=== PATIENT | male | born 1960 | race Caucasian/White ===

== ENCOUNTER 2018-06-17 11:46 | Emergency (ER) | payer BC, OTHER ==
[~2018-06-17] VITALS: Ht 177.8 cm; Wt 129.0 kg
[~2018-06-17 11:46] MED LIST: ASPI-1265 PO; ATOR20TA PO; CLOP75TA35 PO; ESCI10TA45 PO; LISI-222 PO; LOP25T PO; METF500T PO; NOR5T PO; PANT40TA39 PO
[2018-06-17] MEDS ORDERED: famotidine/PF 10 mg/ml inj IV ONE (12:20)
[2018-06-17] MEDS ORDERED: methylPREDNISolone sod succ 125mg/2ml vial IV ONE (12:20)
[2018-06-17] MEDS ORDERED: diphenhydrAMINE 50 mg/ml inj IV ONE (12:20)
[2018-06-17 14:36] VITALS: BP 147/90
== END 2018-06-17 14:38 | disposition home or self-care (01) ==
LOC: ER 11:46
DX: T63.441A Toxic effect of venom of bees, accidental (unintentional), initial encounter (principal); H93.8X9 Other specified disorders of ear, unspecified ear; I25.10 Atherosclerotic heart disease of native coronary artery without angina pectoris; Z88.0 Allergy status to penicillin; Z88.1 Allergy status to other antibiotic agents; Z79.82 Long term (current) use of aspirin; Z79.899 Other long term (current) drug therapy; Y92.89 Other specified places as the place of occurrence of the external cause
CPT/HCPCS: 96374; 96375; 99284; J1200; J2930; J3490

== ENCOUNTER 2020-05-25 10:16 | Emergency (ER) | payer BC, MEDICAID ==
[~2020-05-25] VITALS: Ht 175.3 cm; Wt 112.0 kg
[~2020-05-25 10:16] MED LIST changes: +ATOR10TA87 PO; -ATOR20TA PO; +CHOL100046 PO; -CLOP75TA35 PO; -ESCI10TA45 PO; -LISI-222 PO; +LISI1TAB32 PO; -LOP25T PO; +METF1000 PO; -METF500T PO; +METO100T7 PO; +NITR0.4T48 SL; -PANT40TA39 PO; +PIOG45TA5 PO
[2020-05-25 11:11] LABS: BASOPHILS # (AUTO) 0.1 X10'3 (0-0.2); BASOPHILS % (AUTO) 1.1 % (0-1); EOSINOPHILS # (AUTO) 0.2 X10'3 (0-0.9); EOSINOPHILS % (AUTO) 2.6 % (0-6); HEMATOCRIT 40.7 % (42.0-52.0); HEMOGLOBIN 13.4 g/dl (14.0-17.9); LYMPHOCYTES # (AUTO) 1.8 X10'3 (1.1-4.8); LYMPHOCYTES % (AUTO) 29.6 % (21-51); MEAN CORPUSCULAR HEMOGLOBIN 29.5 PG (27.0-31.0); MEAN CORPUSCULAR HGB CONC 32.8 g/dL (33.0-36.5); MEAN CORPUSCULAR VOLUME 89.8 FL (78-98); MEAN PLATELET VOLUME 8.6 FL (7.4-10.4); MONOCYTES # (AUTO) 0.7 X10'3 (0-0.9); MONOCYTES % (AUTO) 10.6 % (2-12); NEUTROPHILS # (AUTO) 3.5 X10'3 (1.8-7.7); NEUTROPHILS % (AUTO) 56.1 % (42-75); PLATELET COUNT 297 X10'3 (140-440); RED BLOOD COUNT 4.53 X10'6 (4.70-6.10); RED CELL DISTRIBUTION WIDTH 13.1 % (11.5-14.5); WHITE BLOOD COUNT 6.2 X10'3 (4.5-11.0)
[2020-05-25 11:23] LABS: ALANINE AMINOTRANSFERASE 15 U/L (12-78); ALBUMIN 3.1 G/DL (3.4-5.0); ALBUMIN/GLOBULIN RATIO 0.8 (1.1-1.5); ALKALINE PHOSPHATASE 83 IU/L (46-116); ANION GAP 6 (8-16); BILIRUBIN,TOTAL 0.4 MG/DL (0.1-1.0); BLOOD UREA NITROGEN 14 MG/DL (7-18); BUN/CREATININE RATIO 10.9 (5.4-32.0); CALCIUM 8.8 MG/DL (8.5-10.1); CHLORIDE 104 MMOL/L (99-107); CREATININE 1.28 MG/DL (0.60-1.10); GLUCOSE 370 MG/DL (70-104); POTASSIUM 4.3 MMOL/L (3.5-5.1); SODIUM 137 MMOL/L (135-145); TOTAL PROTEIN 7.2 G/DL (6.4-8.2); eGFR 58 ML/MIN
[2020-05-25 11:31] LABS: ASPARTATE AMINO TRANSFERASE 4 U/L (10-37)
[2020-05-25] MEDS ORDERED: normal saline 1000ML IV soln IVB ONE (12:05)
[2020-05-25 14:18] VITALS: BP 163/93
== END 2020-05-25 14:21 | disposition home or self-care (01) ==
LOC: ER 10:17
DX: E11.65 Type 2 diabetes mellitus with hyperglycemia (principal); I25.10 Atherosclerotic heart disease of native coronary artery without angina pectoris; Z88.0 Allergy status to penicillin; Z88.1 Allergy status to other antibiotic agents; Z79.82 Long term (current) use of aspirin; Z79.899 Other long term (current) drug therapy
CPT/HCPCS: 36415; 80053; 82948; 85025; 96360; 99285; J7030

== ENCOUNTER 2022-03-05 22:39 | Emergency (ER) | payer MEDICARE, MEDICAID ==
[~2022-03-05] VITALS: Ht 175.3 cm; Wt 140.9 kg
[~2022-03-05 22:39] MED LIST changes: -LISI1TAB32 PO; +LISI1TAB49 PO
[2022-03-05 22:43] VITALS: BP 158/76
[2022-03-05] MEDS ORDERED: CEPH250T PO (22:59)
[2022-03-05] MEDS ORDERED: SULF1TAB45 PO (22:59)
[2022-03-05] MEDS ORDERED: cephalexin 250mg capsule PO ONE (23:00)
[2022-03-05] MEDS ORDERED: sulfamethoxazole/trimethoprim DS (800/160mg) tablet PO ONE (23:00)
== END 2022-03-05 23:16 | disposition home or self-care (01) ==
LOC: ER 22:40
DX: L03.115 Cellulitis of right lower limb (principal); R50.9 Fever, unspecified; I25.10 Atherosclerotic heart disease of native coronary artery without angina pectoris; E11.9 Type 2 diabetes mellitus without complications; Z88.0 Allergy status to penicillin; Z88.1 Allergy status to other antibiotic agents; Z79.82 Long term (current) use of aspirin; Z79.2 Long term (current) use of antibiotics; Z79.899 Other long term (current) drug therapy
CPT/HCPCS: 99283

== ENCOUNTER 2022-06-17 22:52 | Emergency (ER) | payer MEDICARE, MEDICAID ==
[~2022-06-17] VITALS: Ht 175.3 cm; Wt 136.4 kg
[2022-06-18] MEDS ORDERED: ketorolac trometh. 30mg/ml inj. IM ONE (03:40)
[2022-06-18] MEDS ORDERED: morphine 4 MG/ML inj SYRINge IM ONE (03:40)
[2022-06-18 04:01] VITALS: BP 181/91
== END 2022-06-18 04:04 | disposition home or self-care (01) ==
LOC: ER 22:53
DX: I87.2 Venous insufficiency (chronic) (peripheral) (principal); L03.119 Cellulitis of unspecified part of limb; I10 Essential (primary) hypertension; K21.9 Gastro-esophageal reflux disease without esophagitis; E11.9 Type 2 diabetes mellitus without complications; G89.29 Other chronic pain; M54.50 Low back pain, unspecified; Z88.0 Allergy status to penicillin; Z88.1 Allergy status to other antibiotic agents
CPT/HCPCS: 96372; 99284; J1885; J2270

== ENCOUNTER 2022-07-04 22:08 | Emergency (ER) | payer MEDICARE, MEDICAID ==
[~2022-07-04] VITALS: Ht 175.3 cm; Wt 136.4 kg
[2022-07-04 23:16] LABS: BASOPHILS # (AUTO) 0.1 X10'3 (0-0.2); BASOPHILS % (AUTO) 0.6 % (0-1); EOSINOPHILS # (AUTO) 0.2 X10'3 (0-0.9); EOSINOPHILS % (AUTO) 2.3 % (0-6); HEMOGLOBIN 12.4 g/dl (14.0-17.9); LYMPHOCYTES # (AUTO) 1.6 X10'3 (1.1-4.8); LYMPHOCYTES % (AUTO) 15.9 % (21-51); MEAN CORPUSCULAR HEMOGLOBIN 28.3 PG (27.0-31.0); MEAN CORPUSCULAR HGB CONC 32.7 g/dL (33.0-36.5); MEAN CORPUSCULAR VOLUME 86.5 FL (78-98); MEAN PLATELET VOLUME 7.9 FL (7.4-10.4); MONOCYTES # (AUTO) 0.8 X10'3 (0-0.9); MONOCYTES % (AUTO) 8.2 % (2-12); NEUTROPHILS # (AUTO) 7.2 X10'3 (1.8-7.7); PLATELET COUNT 381 X10'3 (140-440); RED BLOOD COUNT 4.39 X10'6 (4.70-6.10); RED CELL DISTRIBUTION WIDTH 14.6 % (11.5-14.5); WHITE BLOOD COUNT 9.9 X10'3 (4.5-11.0)
[2022-07-04 23:30] LABS: ALANINE AMINOTRANSFERASE 21 U/L (12-78); ALBUMIN/GLOBULIN RATIO 0.7 (1.1-1.5); ALKALINE PHOSPHATASE 72 IU/L (46-116); ANION GAP 11 (8-16); ASPARTATE AMINO TRANSFERASE 11 U/L (10-37); BILIRUBIN,TOTAL 0.3 MG/DL (0.1-1.0); BLOOD UREA NITROGEN 20 MG/DL (7-18); BUN/CREATININE RATIO 16.4 (5.4-32.0); CHLORIDE 103 MMOL/L (99-107); CREATININE 1.22 MG/DL (0.60-1.10); GLUCOSE 135 MG/DL (70-104); POTASSIUM 3.9 MMOL/L (3.5-5.1); SODIUM 142 MMOL/L (135-145); TOTAL CARBON DIOXIDE 28.1 MMOL/L (24-32); TOTAL PROTEIN 7.6 G/DL (6.4-8.2); eGFR 60 ML/MIN
[2022-07-05 02:34] VITALS: BP 162/82
== END 2022-07-05 02:35 | disposition home or self-care (01) ==
LOC: ER 22:09
DX: R53.1 Weakness (principal); R53.83 Other fatigue; R07.89 Other chest pain; I25.10 Atherosclerotic heart disease of native coronary artery without angina pectoris; I10 Essential (primary) hypertension; K21.9 Gastro-esophageal reflux disease without esophagitis; E11.9 Type 2 diabetes mellitus without complications; G89.29 Other chronic pain; Z88.0 Allergy status to penicillin; Z88.1 Allergy status to other antibiotic agents; Z79.82 Long term (current) use of aspirin; Z79.899 Other long term (current) drug therapy
CPT/HCPCS: 36415; 71045; 80053; 83880; 84484; 85025; 93005; 99285

== ENCOUNTER 2023-06-24 06:07 | Inpatient (IN) | payer MEDICARE, MEDICAID ==
[2023-06-19 14:29] LABS: BILIRUBIN,URINE NEGATIVE (Neg); CLARITY,URINE CLEAR (Clear); COLOR,URINE YELLOW (Yellow); GLUCOSE, URINE >=1000 mg/dl (Neg); KETONES,URINE NEGATIVE (Neg); LEUKOCYTE ESTERASE ,URINE NEGATIVE (Neg); NITRITES, URINE NEGATIVE (Neg); OCCULT BLOOD,URINE NEGATIVE (Neg); PH,URINE 5.5 (4.8-8.0); PROTEIN,URINE NEGATIVE (Neg); UROBILINOGEN,URINE 0.2 E.U/dL (0.2-1.0)
[2023-06-19 14:33] LABS: BASOPHILS # (AUTO) 0.1 X10'3 (0-0.2); BASOPHILS % (AUTO) 0.5 % (0-1); EOSINOPHILS # (AUTO) 0.2 X10'3 (0-0.9); EOSINOPHILS % (AUTO) 1.8 % (0-6); LYMPHOCYTES # (AUTO) 1.7 X10'3 (1.1-4.8); MEAN CORPUSCULAR HEMOGLOBIN 28.7 PG (27.0-31.0); MEAN CORPUSCULAR HGB CONC 32.4 g/dL (33.0-36.5); MEAN CORPUSCULAR VOLUME 88.6 FL (78-98); MEAN PLATELET VOLUME 8.1 FL (7.4-10.4); MONOCYTES % (AUTO) 9.2 % (2-12); NEUTROPHILS # (AUTO) 7.5 X10'3 (1.8-7.7); NEUTROPHILS % (AUTO) 72.5 % (42-75); PRE OP HEMATOCRIT 40.2 % (42.0-52.0); PRE OP PLATELET COUNT 367 X10'3 (140-440); PRE OP WHITE BLOOD COUNT 10.3 10'3 (4.8-10.8); RED BLOOD COUNT 4.53 X10'6 (4.70-6.10); RED CELL DISTRIBUTION WIDTH 14.7 % (11.5-14.5)
[2023-06-19 14:35] LABS: UA COLLECTION TYPE CLN CATCH MIDSTREAM
[2023-06-19 14:40] LABS: BACTERIA,URINE FEW /HPF (Neg); FINE GRANULAR CAST 0-3 /LPF (NEGATIVE); MUCUS STRANDS NONE SEEN /LPF (Neg); RBC,URINE NONE SEEN /HPF (0-2); SQUAMOUS EPITHELIAL CELL,UR NONE SEEN /LPF (FEW); WBC,URINE 0-4 /HPF (0-4)
[2023-06-19 14:48] LABS: PRE OP PROTIME 10.7 SECONDS (9.0-12.0)
[2023-06-19 15:03] LABS: HEMOGLOBIN A1C 7.7 % (4.5-6.2)
[2023-06-19 15:08] LABS: ALBUMIN 2.9 G/DL (3.4-5.0); ALBUMIN/GLOBULIN RATIO 0.7 (1.1-1.5); ALKALINE PHOSPHATASE 73 IU/L (46-116); BLOOD UREA NITROGEN 17 MG/DL (7-18); CHLORIDE 104 MMOL/L (99-107); CREATININE 1.13 MG/DL (0.60-1.10); PRE OP ALT 22 U/L (30-65); PRE OP ANION GAP 9 (8-16); PRE OP AST 13 U/L (10-37); PRE OP BILIRUB, TOTAL 0.4 MG/DL (0.0-1.0); PRE OP GLUCOSE 100 MG/DL (70-104); PRE OP POTASSIUM 4.3 MMOL/L (3.4-5.1); PRE OP SODIUM 142 MMOL/L (135-145); THYROID STIMULATING HORMONE 1.86 ulU/ml (0.34-4.50); TOTAL CARBON DIOXIDE 28.9 MMOL/L (24-32); TOTAL PROTEIN 7.3 G/DL (6.4-8.2); eGFR 66 ML/MIN
[2023-06-22 07:43] LABS: ABG BASE EXCESS 1.1 mmol/L (-2.0-2.0); ABG HCO3 25.5 mmol/L (22.0-26.0); ABG OXYGEN SATURATION 95.9 % (94-97); ABG PCO2 (T) 39.8 mmHg (35.0-48.0); ABG PH (T) 7.424 (7.340-7.440); ABG PO2 (T) 82.4 mmHg (75.0-100.0); ALLEN'S TEST POSITIVE; FCOHb 0.3 % (0.0-3.9); FHHb 4.1 % (0.0-5.0); FMetHb 0.1 % (0.0-1.5); FO2Hb 95.5 % (94-97); MODE ROOM AIR; TOTAL HEMOGLOBIN 13.8 G/dl (14.0-17.9)
[~2023-06-24] VITALS: Ht 172.7 cm; Wt 143.0 kg
[2023-06-24] VITALS (26 sets, daily range): BP systolic 93–149; BP diastolic 52–80; PULSE 70–80; RESP 14–16; TEMP 97.9; O2SAT 90–94
[~2023-06-24 06:07] MED LIST changes: +AMLO10TA16 PO; -ASPI-1265 PO; -ATOR10TA87 PO; +BUPR-317 PO; -CHOL100046 PO; +DOCUMENT DATE & TIME OF BETA-BLOCKER PO ONE; +DULA4.5P SQ; +DULO60CA59 PO; +EMPA10TA PO; +EZET10TA6 PO; +HUM7525 SQ; +Insulin Reg/NS 100units/100mL 100 ML IV SCH; +LISI10TA27 PO; -LISI1TAB49 PO; +LORazepam 2 mg/ml vial IV ONE; +METF-516 PO; -METF1000 PO; +METO100T14 PO; -METO100T7 PO; -NITR0.4T48 SL; -NOR5T PO; +PANT-47 PO; -PIOG45TA5 PO; +ROSU40TA22 PO; +TICA90TA PO; +dextrose 50%-water 50ml dispensing syringe IV PRN; +famotidine 20mg tablet PO ONE; +metoprolol tartrate 12.5mg (1/2 tablet) PO ONE; +ringers solution, lacted 1,000 ML IV SCH; +vancomycin 1,500 MG in NS 300ml IV soln IV ONE
[2023-06-24] MEDS ORDERED: epiNEPHrine 1 mg/ml inj ONE (06:36)
[2023-06-24] MEDS ORDERED: ceFAZolin 1000mg inj ONE (06:37)
[2023-06-24] MEDS ORDERED: BUPIVAcaine 0.5% inj/PF 30 ML ONE (06:37)
[2023-06-24] MEDS ORDERED: vancomycin 1,000mg inj ONE (06:51)
[2023-06-24] MEDS ORDERED: ceFAZolin inj. 3,000 MG in normal saline 100ml IV soln 100 ML IV ONE (07:59)
[2023-06-24] MEDS ORDERED: LIDOcaine 2% (20 mg/ml) 5ml cardiac syringe ONE (08:00)
[2023-06-24] MEDS ORDERED: methylPREDNISolone sod succ 1000mg vial ONE (08:00)
[2023-06-24] MEDS ORDERED: sodium bicarbonate (8.4%) 1 mEq/ml syringe ONE (08:00)
[2023-06-24] MEDS ORDERED: aminocaproic acid 250 MG/1 ML inj. ONE ×2 (08:00→08:16)
[2023-06-24] MEDS ORDERED: mannitol 12.5gm/50mL VIAL IV ONE (08:00)
[2023-06-24] MEDS ORDERED: heparin 10,000 units/1 ML INJ ONE (08:00)
[2023-06-24] MEDS ORDERED: albumin (human) 25% 100 ML IV solution IV ONE (08:00)
[2023-06-24] MEDS ORDERED: NORepinephrine 1 mg/ml inj IV ONE (08:00)
[2023-06-24] MEDS ORDERED: calcium chloride 100 MG/1 ML inj IV ONE (08:00)
[2023-06-24] MEDS ORDERED: mupirocin 2% nasal ointment 1gm UD NS ONE (08:05)
[2023-06-24] MEDS ORDERED: midazolam 1 mg/ML 2ml injection ONE (08:06)
[2023-06-24] MEDS ORDERED: SUfentanil 50mcg/ml 1ml amp IV ONE ×2 (08:06)
[2023-06-24] MEDS ORDERED: NORepinephrine 8 MG in NS 250 ML BAG (32 mcg/ml) IV ONE (08:16)
[2023-06-24] MEDS ORDERED: DOBUTamine/D5W 500mg/250ml premix IV ONE (08:16)
[2023-06-24] MEDS ORDERED: rocuronium 10mg/ml inj IV ONE ×2 (08:16→13:27)
[2023-06-24] MEDS ORDERED: nitroGLYCERIN in D5W 50mg/250ml (Tridil) infusion IV ONE (08:16)
[2023-06-24] MEDS ORDERED: isoflurane 100ml inhalation liquid IH ONE (08:16)
[2023-06-24 08:54] LABS: ABG BASE EXCESS 1.2 mmol/L (-2.0-2.0); ABG HCO3 25.6 mmol/L (22.0-26.0); ABG OXYGEN SATURATION 99.8 % (94-97); ABG PCO2 39.9 mmHg (35.0-48.0); ABG PH 7.425 (7.340-7.440); ABG PO2 498.7 mmHg (75.0-100.0); CL (ABG) 103 mmol/L (99-107); FCOHb 0.3 % (0.0-3.9); FHHb 0.2 % (0.0-5.0); FMetHb 0.3 % (0.0-1.5); FO2Hb 99.2 % (94-97); GLUCOSE (ABG) 132 mg/dl (70-104); IONIZED CA (ABG) 1.15 mmol/L (1.10-1.30); TOTAL HEMOGLOBIN 12.1 G/dl (14.0-17.9)
[2023-06-24 09:27] LABS: ACT @ 1.70 U 267 SEC (193-297); ACT @ 2.84 U 382 SEC (260-420); BASELINE ACT 153 SEC (101-148)
[2023-06-24 09:54] LABS: ABG BASE EXCESS VENOUS 0.9 mmol/L (-2.0 - 2.0); ABG OXYGEN SATURATION VENOUS 78.5 % (75 - 99 %); ABG PCO2 VENOUS 43.7 mmHg (41.0-54.0); ABG PH (VENOUS) 7.393 (7.310-7.450); ABG PO2 VENOUS 43.3 mmHg (25.0-35.0); CL (ABG) 101 mmol/L (99-107); FCOHb VENOUS 0.7 %; FHHb VENOUS 21.3 %; FMetHb VENOUS 0.3 % (0.0 - 0.5); FO2Hb VENOUS 77.7 %; GLUCOSE (ABG) 134 mg/dl (70-104); IONIZED CA (ABG) 1.04 mmol/L (1.10-1.30); K (ABG) 3.9 mmol/L (3.5-5.1); TOTAL HEMOGLOBIN 9.3 G/dl (14.0-17.9)
[2023-06-24 09:58] LABS: ABG BASE EXCESS 1.2 mmol/L (-2.0-2.0); ABG OXYGEN SATURATION 99.8 % (94-97); ABG PCO2 42.2 mmHg (35.0-48.0); ABG PH 7.408 (7.340-7.440); ABG PO2 403.1 mmHg (75.0-100.0); CL (ABG) 102 mmol/L (99-107); FCOHb 0.5 % (0.0-3.9); FHHb 0.2 % (0.0-5.0); FMetHb 0.3 % (0.0-1.5); GLUCOSE (ABG) 136 mg/dl (70-104); IONIZED CA (ABG) 1.03 mmol/L (1.10-1.30); TOTAL HEMOGLOBIN 9.1 G/dl (14.0-17.9)
[2023-06-24 10:04] LABS: ABG BASE EXCESS VENOUS 2.4 mmol/L (-2.0 - 2.0); ABG HCO3 VENOUS 28.4 mmol/L (21.0-28.0); ABG PCO2 VENOUS 51.3 mmHg (41.0-54.0); ABG PH (VENOUS) 7.361 (7.310-7.450); ABG PO2 VENOUS 35.6 mmHg (25.0-35.0); CL (ABG) 102 mmol/L (99-107); FCOHb VENOUS 0.9 %; FHHb VENOUS 32.7 %; FMetHb VENOUS 0.1 % (0.0 - 0.5); FO2Hb VENOUS 66.3 %; GLUCOSE (ABG) 138 mg/dl (70-104); IONIZED CA (ABG) 1.04 mmol/L (1.10-1.30); K (ABG) 4.1 mmol/L (3.5-5.1); TOTAL HEMOGLOBIN 9.4 G/dl (14.0-17.9)
[2023-06-24] MEDS ORDERED: ipratropium/albuterol 3ml nebule IH PRN (10:05)
[2023-06-24 10:26] LABS: ABG HCO3 27.3 mmol/L (22.0-26.0); ABG OXYGEN SATURATION 99.4 % (94-97); ABG PCO2 46.1 mmHg (35.0-48.0); ABG PH 7.391 (7.340-7.440); CL (ABG) 101 mmol/L (99-107); FHHb 0.6 % (0.0-5.0); FMetHb 0.3 % (0.0-1.5); FO2Hb 99.1 % (94-97); GLUCOSE (ABG) 169 mg/dl (70-104); IONIZED CA (ABG) 1.05 mmol/L (1.10-1.30); K (ABG) 4.1 mmol/L (3.5-5.1); TOTAL HEMOGLOBIN 9.5 G/dl (14.0-17.9)
[2023-06-24 11:11] LABS: ABG BASE EXCESS 2.4 mmol/L (-2.0-2.0); ABG HCO3 28.3 mmol/L (22.0-26.0); ABG OXYGEN SATURATION 70.8 % (94-97); ABG PCO2 49.9 mmHg (35.0-48.0); ABG PH 7.371 (7.340-7.440); CL (ABG) 103 mmol/L (99-107); FCOHb 0.6 % (0.0-3.9); FHHb 28.9 % (0.0-5.0); FMetHb 0.3 % (0.0-1.5); FO2Hb 70.2 % (94-97); GLUCOSE (ABG) 166 mg/dl (70-104); IONIZED CA (ABG) 1.19 mmol/L (1.10-1.30); TOTAL HEMOGLOBIN 10.1 G/dl (14.0-17.9)
[2023-06-24 11:14] LABS: ACTIVATED CLOTTING TIME 120 SEC (101-148)
[2023-06-24] MEDS ORDERED: acetaminophen 1,000mg/100ml IV 100 ML IV ONE (11:22)
[2023-06-24] MEDS ORDERED: magnesium 4gm in 100ml NS 100 ML IV PRN (11:25)
[2023-06-24] MEDS ORDERED: magnesium hydroxide 30ml (MOM) UD suspension PO PRN (11:25)
[2023-06-24] MEDS ORDERED: ondansetron/PF 4mg/2ml inj IV PRN (11:25)
[2023-06-24] MEDS ORDERED: magnesium 2GM in 50ml NS 50 ML IV PRN (11:25)
[2023-06-24] MEDS ORDERED: potassium CL 10mEq/100ml bag 100 ML IV PRN (11:25)
[2023-06-24] MEDS ORDERED: acetaminophen 325mg tablet PO PRN ×2 (11:25)
[2023-06-24] MEDS ORDERED: Neutra Phos packet PO PRN (11:25)
[2023-06-24] MEDS ORDERED: nitroGLYCERIN-Tridil 50MG/D5W 250 ML IV SCH (11:25)
[2023-06-24] MEDS ORDERED: dextrose 50%-water 50ml dispensing syringe IV PRN (11:25)
[2023-06-24] MEDS ORDERED: sodium phosphate inj. 15 MMOL in dextrose 5%-water 250 ML IV PRN (11:25)
[2023-06-24] MEDS ORDERED: potassium Cl 20 mEq SR tablet PO PRN (11:25)
[2023-06-24] MEDS ORDERED: potassium Cl 40MEQ/1/2NS 520ml 520 ML IV PRN (11:25)
[2023-06-24] MEDS ORDERED: potassium Cl 40MEQ/270ML bag 250 ML IV PRN (11:25)
[2023-06-24] MEDS ORDERED: mineral oil 133ml enema RC PRN (11:25)
[2023-06-24] MEDS ORDERED: bisacodyl 10mg suppository rectal RC PRN (11:25)
[2023-06-24] MEDS ORDERED: morphine 2 MG/ML inj. syringe IV PRN (11:25)
[2023-06-24] MEDS ORDERED: niCARDipine-NS 40mg/200ml IVPB 200 ML IV PRN (11:25)
[2023-06-24] MEDS ORDERED: insulin glargine (Lantus) pen - multi-dose SQ PRN (11:25)
[2023-06-24] MEDS ORDERED: morphine 4 MG/ML inj SYRINge IV PRN (11:25)
[2023-06-24] MEDS ORDERED: metoclopramide 5 mg/ml inj IV PRN (11:25)
[2023-06-24] MEDS ORDERED: DOBUTamine-DoBUTrex 500mg/D5W 250 ML IV PRN (11:25)
[2023-06-24] MEDS ORDERED: sodium phosphate inj. 30 MMOL in dextrose 5%-water 250 ML IV PRN (11:25)
[2023-06-24] MEDS ORDERED: sodium chloride 0.45% 1,000 ML IV SCH (11:25)
[2023-06-24] MEDS ORDERED: albumin (Human) 5% 250ml 250 ML IV PRN (11:25)
--- NOTE | 2023-06-24 12:00 | NUR ---
Received to room 2009, accompanied by MDs and surgical crew. Placed on ventilator, to cafeteria monitor, arterial line and PA line pressure zeroed & monitored. Chest tubes to suction at 20 cm. Vora cath to gravity drainage. Dressings are dry and intact. See assessment record. All vasoactive drugs are infusing via central line.
[2023-06-24 12:15] LABS: ABG BASE EXCESS 0.8 mmol/L (-2.0-2.0); ABG HCO3 26.9 mmol/L (22.0-26.0); ABG PCO2 (T) 49.2 mmHg (35.0-48.0); ABG PH (T) 7.356 (7.340-7.440); ABG PO2 (T) 75.1 mmHg (75.0-100.0); FLOW 40 L/min; FMetHb 0.2 % (0.0-1.5); FO2Hb 93.8 % (94-97); MODE VENT - SIMV; PEEP 5 cm H2O; RESPIRATORY RATE 14 b/min; TIDAL VOLUME 650 mL; TOTAL HEMOGLOBIN 12.2 G/dl (14.0-17.9)
[2023-06-24 12:17] LABS: BASOPHILS % (AUTO) 0.2 % (0-1); EOSINOPHILS # (AUTO) 0.1 X10'3 (0-0.9); EOSINOPHILS % (AUTO) 0.4 % (0-6); HEMATOCRIT 34.5 % (42.0-52.0); HEMOGLOBIN 10.9 g/dl (14.0-17.9); LYMPHOCYTES # (AUTO) 1.3 X10'3 (1.1-4.8); LYMPHOCYTES % (AUTO) 7.5 % (21-51); MEAN CORPUSCULAR HEMOGLOBIN 28.2 PG (27.0-31.0); MEAN CORPUSCULAR HGB CONC 31.7 g/dL (33.0-36.5); MONOCYTES # (AUTO) 1.2 X10'3 (0-0.9); MONOCYTES % (AUTO) 6.9 % (2-12); NEUTROPHILS # (AUTO) 14.4 X10'3 (1.8-7.7); PLATELET COUNT 281 X10'3 (140-440); RED BLOOD COUNT 3.87 X10'6 (4.70-6.10); RED CELL DISTRIBUTION WIDTH 15.1 % (11.5-14.5)
[2023-06-24 12:30] LABS: APTT 27 SECONDS (22-32); INR 1.1 INR
[2023-06-24 12:32] LABS: ANION GAP 5 (8-16); BLOOD UREA NITROGEN 15 MG/DL (7-18); CHLORIDE 107 MMOL/L (99-107); GLUCOSE 160 MG/DL (70-104); SODIUM 140 MMOL/L (135-145)
[2023-06-24 12:33] LABS: ALANINE AMINOTRANSFERASE 16 U/L (12-78); ALBUMIN 2.3 G/DL (3.4-5.0); ALBUMIN/GLOBULIN RATIO 0.8 (1.1-1.5); ALKALINE PHOSPHATASE 45 IU/L (46-116); ASPARTATE AMINO TRANSFERASE 17 U/L (10-37); BILIRUBIN,TOTAL 0.6 MG/DL (0.1-1.0); BUN/CREATININE RATIO 10.9 (10.0-20.0); CALCIUM 8.6 MG/DL (8.5-10.1); CREATININE 1.38 MG/DL (0.60-1.10); MAGNESIUM 1.8 MG/DL (1.5-2.4); PHOSPHORUS 2.9 MG/DL (2.3-4.5); TOTAL PROTEIN 5.3 G/DL (6.4-8.2); eCRCL 54 ML/MIN; eGFR 52 ML/MIN
[2023-06-24] MEDS: potassium Cl 20mEq/100mL bag 100 ML IV PRN ×4 (12:50→21:38)
[2023-06-24] MEDS: Insulin Reg/NS 100units/100mL 100 ML IV SCH (13:15)
[2023-06-24] MEDS ORDERED: propofol inj 20 ML IV ONE (13:27)
[2023-06-24] MEDS ORDERED: LIDOcaine 2% (20mg/ml) 5ml vial ONE (13:27)
--- NOTE | 2023-06-24 13:35 | NUR ---
Nutrition consult: Per EMR pt remains intubated s/p CABG x 2 today. Pt would benefit from post CABG nutrition therapy education as appropriate following extubation. Will continue to follow. Addendum: 06/24/23 at [address] Amended: Links added.
[2023-06-24] MEDS ORDERED: NORepinephrine 8mg/ 250ml NS 250 ML IV PRN (14:05)
[2023-06-24] MEDS: ceFAZolin/D5W- 1GM premix 50 ML IV SCH (15:51)
[2023-06-24 16:24] LABS: ABG PO2 40.6 mmHg (75.0-100.0)
[2023-06-24 17:52] LABS: BASOPHILS % (AUTO) 0.1 % (0-1); EOSINOPHILS % (AUTO) 0.2 % (0-6); HEMATOCRIT 33.5 % (42.0-52.0); HEMOGLOBIN 10.6 g/dl (14.0-17.9); LYMPHOCYTES # (AUTO) 0.5 X10'3 (1.1-4.8); LYMPHOCYTES % (AUTO) 3.7 % (21-51); MEAN CORPUSCULAR HEMOGLOBIN 28.2 PG (27.0-31.0); MEAN CORPUSCULAR HGB CONC 31.6 g/dL (33.0-36.5); MEAN CORPUSCULAR VOLUME 89.3 FL (78-98); MEAN PLATELET VOLUME 7.9 FL (7.4-10.4); MONOCYTES # (AUTO) 0.6 X10'3 (0-0.9); MONOCYTES % (AUTO) 4.5 % (2-12); NEUTROPHILS # (AUTO) 11.9 X10'3 (1.8-7.7); NEUTROPHILS % (AUTO) 91.5 % (42-75); PLATELET COUNT 254 X10'3 (140-440); RED BLOOD COUNT 3.75 X10'6 (4.70-6.10); RED CELL DISTRIBUTION WIDTH 15.2 % (11.5-14.5)
[2023-06-24 18:07] LABS: ALBUMIN 2.6 G/DL (3.4-5.0); ANION GAP 8 (8-16); BLOOD UREA NITROGEN 15 MG/DL (7-18); BUN/CREATININE RATIO 12.4 (10.0-20.0); CALCIUM 8.6 MG/DL (8.5-10.1); CHLORIDE 107 MMOL/L (99-107); CREATININE 1.21 MG/DL (0.60-1.10); GLUCOSE 149 MG/DL (70-104); MAGNESIUM 2.6 MG/DL (1.5-2.4); PHOSPHORUS 3.9 MG/DL (2.3-4.5); POTASSIUM 4.3 MMOL/L (3.5-5.1); SODIUM 142 MMOL/L (135-145); TOTAL CARBON DIOXIDE 27.5 MMOL/L (24-32); eCRCL 61 ML/MIN; eGFR 61 ML/MIN
--- NOTE | 2023-06-24 18:12 | NUR ---
Problems reprioritized. Patient report given, questions answered & plan of care reviewed with Lis BRENNER.
--- NOTE | 2023-06-24 18:29 | NUR ---
Patient in room CICU 2008. I have received report from Andreas BRENNER and had the opportunity to ask questions and assume patient care.
--- NOTE | 2023-06-24 18:43 | NUR ---
Talha at bedside, PEEP changed to 10 from 5 to open up some alveoli, Sats at 89- 91%, FiO2 still at 80%. also at bedside, pt will nod appropriately but continues to be drowsy.
[2023-06-24] MEDS: vancomycin/NS 1 GM ADD-VANTAGE 250 ML IV SCH (20:05)
[2023-06-24] MEDS: mupirocin 2% nasal ointment 1gm UD NS SCH (20:09)
[2023-06-24] MEDS: sennosides/docusate sodium tablet PO SCH (20:09)
[2023-06-24] MEDS: buPROPion SR 150mg tablet PO SCH (20:40)
[2023-06-24] MEDS: atorvastatin 10mg tablet PO SCH (20:40)
[2023-06-24] MEDS ORDERED: ezetimibe 10mg tablet PO SCH (21:00)
[2023-06-24] MEDS: HYDROcodone/acetaminophen 10/325mg tab PO PRN (21:52)
[2023-06-25] VITALS (32 sets, daily range): BP systolic 93–140; BP diastolic 53–67; PULSE 75–146; RESP 13–25; O2SAT 89–95
[2023-06-25] MEDS: ceFAZolin/D5W- 1GM premix 50 ML IV SCH ×3 (00:05→16:29)
[2023-06-25] MEDS: HYDROcodone/acetaminophen 10/325mg tab PO PRN ×3 (02:14→18:01)
[2023-06-25 02:31] LABS: BASOPHILS % (AUTO) 0.2 % (0-1); EOSINOPHILS % (AUTO) 0 % (0-6); HEMATOCRIT 30.1 % (42.0-52.0); HEMOGLOBIN 9.8 g/dl (14.0-17.9); LYMPHOCYTES # (AUTO) 0.5 X10'3 (1.1-4.8); LYMPHOCYTES % (AUTO) 4.6 % (21-51); MEAN CORPUSCULAR HEMOGLOBIN 28.9 PG (27.0-31.0); MEAN CORPUSCULAR HGB CONC 32.4 g/dL (33.0-36.5); MEAN CORPUSCULAR VOLUME 88.9 FL (78-98); MEAN PLATELET VOLUME 8.3 FL (7.4-10.4); MONOCYTES # (AUTO) 0.7 X10'3 (0-0.9); MONOCYTES % (AUTO) 6.4 % (2-12); NEUTROPHILS % (AUTO) 88.8 % (42-75); PLATELET COUNT 216 X10'3 (140-440); RED BLOOD COUNT 3.38 X10'6 (4.70-6.10); RED CELL DISTRIBUTION WIDTH 15.3 % (11.5-14.5); WHITE BLOOD COUNT 11.2 X10'3 (4.5-11.0)
[2023-06-25 02:48] LABS: ALANINE AMINOTRANSFERASE 18 U/L (12-78); ALBUMIN 2.4 G/DL (3.4-5.0); ALBUMIN/GLOBULIN RATIO 0.8 (1.1-1.5); ALKALINE PHOSPHATASE 40 IU/L (46-116); ANION GAP 10 (8-16); ASPARTATE AMINO TRANSFERASE 21 U/L (10-37); BILIRUBIN,TOTAL 0.4 MG/DL (0.1-1.0); BLOOD UREA NITROGEN 17 MG/DL (7-18); CALCIUM 8.6 MG/DL (8.5-10.1); CHLORIDE 108 MMOL/L (99-107); CREATININE 1.13 MG/DL (0.60-1.10); GLUCOSE 139 MG/DL (70-104); MAGNESIUM 2.5 MG/DL (1.5-2.4); PHOSPHORUS 4.8 MG/DL (2.3-4.5); POTASSIUM 4.5 MMOL/L (3.5-5.1); SODIUM 142 MMOL/L (135-145); TOTAL CARBON DIOXIDE 23.9 MMOL/L (24-32); TOTAL PROTEIN 5.6 G/DL (6.4-8.2); eCRCL 66 ML/MIN; eGFR 66 ML/MIN
[2023-06-25 03:40] LABS: ABG BASE EXCESS -0.5 mmol/L (-2.0-2.0); ABG HCO3 25.1 mmol/L (22.0-26.0); ABG OXYGEN SATURATION 96.1 % (94-97); ABG PCO2 (T) 43.5 mmHg (35.0-48.0); ABG PH (T) 7.376 (7.340-7.440); ABG PO2 (T) 87.4 mmHg (75.0-100.0); FCOHb 0.3 % (0.0-3.9); FHHb 3.9 % (0.0-5.0); FMetHb 0.1 % (0.0-1.5); FO2Hb 95.7 % (94-97); MODE VENT - SIMV; PATIENT TEMPERATURE 36.2; PEEP 10 cm H2O; RESPIRATORY RATE 14 b/min; TIDAL VOLUME 650 mL; TOTAL HEMOGLOBIN 10.7 G/dl (14.0-17.9)
--- NOTE | 2023-06-25 06:14 | NUR ---
Problems reprioritized. Patient report given, questions answered & plan of care reviewed with Andreas BRENNER.
--- NOTE | 2023-06-25 06:28 | NUR ---
Patient in room CICU 2008. I have received report from Lis BRENNER and had the opportunity to ask questions and assume patient care.
--- NOTE | 2023-06-25 09:00 | NUR ---
BG 153mg/dl, stable at this time, ok with keeping insulin drip at 2.9ml/hour until the next glucose check.
[2023-06-25] MEDS: duloxetine 30mg CAPSULE.DR PO SCH (09:10)
[2023-06-25] MEDS: aspirin 81mg tab.chew PO SCH (09:10)
[2023-06-25] MEDS: mupirocin 2% nasal ointment 1gm UD NS SCH ×2 (09:11→20:00)
[2023-06-25] MEDS: metoprolol tartrate 12.5mg (1/2 tablet) PO SCH ×2 (09:11→20:19)
[2023-06-25] MEDS: vancomycin/NS 1 GM ADD-VANTAGE 250 ML IV SCH ×2 (09:11→20:18)
[2023-06-25] MEDS: sennosides/docusate sodium tablet PO SCH ×2 (09:11→20:19)
[2023-06-25] MEDS: Insulin Reg/NS 100units/100mL 100 ML IV SCH (09:22)
[2023-06-25] MEDS ORDERED: DEXTROSE 15 GM of carb/4 tabs (each vial/BOTTLE has 4 tablets) PO PRN ×2 (10:35)
[2023-06-25] MEDS ORDERED: dextrose 50%-water 50ml dispensing syringe IV PRN ×2 (10:35)
--- NOTE | 2023-06-25 11:03 | NUR ---
F/u: Per EMR pt with T2DM, fairly well controlled with A1c 7.7%. Pt remains intubated at this time. Pt would benefit from DM and post CABG nutrition therapy educations as appropriate following extubation. Will continue to follow. Addendum: 06/25/23 at [address] Amended: Links added.
[2023-06-25] MEDS: insulin Lispro (HumaLOG) vial - multi-dose SQ SCH (13:22)
[2023-06-25 15:17] LABS: ABG BASE EXCESS -0.4 mmol/L (-2.0-2.0); ABG HCO3 24.7 mmol/L (22.0-26.0); ABG OXYGEN SATURATION 94.3 % (94-97); ABG PCO2 (T) 42.5 mmHg (35.0-48.0); ABG PH (T) 7.383 (7.340-7.440); ABG PO2 (T) 78.8 mmHg (75.0-100.0); FCOHb 0.3 % (0.0-3.9); FHHb 5.7 % (0.0-5.0); FMetHb 0.1 % (0.0-1.5); FO2Hb 93.9 % (94-97); MODE VENT - CPAP/PS; PEEP 8 cm H2O; TOTAL HEMOGLOBIN 10.6 G/dl (14.0-17.9)
--- NOTE | 2023-06-25 18:10 | NUR ---
Problems reprioritized. Patient report given, questions answered & plan of care reviewed with Alex BRENNER.
--- NOTE | 2023-06-25 18:21 | NUR ---
Problems reprioritized. Patient report given, questions answered & plan of care reviewed with Dai BRENNER.
--- NOTE | 2023-06-25 18:22 | NUR ---
Student documentation: I have reviewed and agree with all interventions, assessments performed and documented by Farzana.
[2023-06-25] MEDS ORDERED: amiodarone 150mg/dext, iso-os 100 ML IV ONE ×2 (18:35→18:45)
[2023-06-25] MEDS: amiodarone/D5 360MG/200ML BAG 200 ML IV SCH ×2 (18:45→18:48)
[2023-06-25] MEDS: atorvastatin 10mg tablet PO SCH (20:19)
[2023-06-25] MEDS: buPROPion SR 150mg tablet PO SCH (20:19)
[2023-06-25 21:11] LABS: ANION GAP 10 (8-16); BLOOD UREA NITROGEN 24 MG/DL (7-18); BUN/CREATININE RATIO 20.7 (10.0-20.0); CALCIUM 8.5 MG/DL (8.5-10.1); CHLORIDE 106 MMOL/L (99-107); CREATININE 1.16 MG/DL (0.60-1.10); GLUCOSE 213 MG/DL (70-104); POTASSIUM 4.7 MMOL/L (3.5-5.1); SODIUM 143 MMOL/L (135-145); TOTAL CARBON DIOXIDE 26.9 MMOL/L (24-32); eCRCL 64 ML/MIN; eGFR 64 ML/MIN
[2023-06-25 21:12] LABS: ALBUMIN 2.4 G/DL (3.4-5.0); MAGNESIUM 2.3 MG/DL (1.5-2.4)
[2023-06-26] VITALS (25 sets, daily range): BP systolic 105–154; BP diastolic 63–85; PULSE 74–155; RESP 16–29; O2SAT 89–96
[2023-06-26] MEDS: ceFAZolin/D5W- 1GM premix 50 ML IV SCH (00:19)
[2023-06-26] MEDS: amiodarone/D5 360MG/200ML BAG 200 ML IV SCH ×2 (00:44→08:00)
[2023-06-26] MEDS: HYDROcodone/acetaminophen 10/325mg tab PO PRN ×4 (00:45→18:40)
[2023-06-26 02:59] LABS: BASOPHILS % (AUTO) 0.3 % (0-1); EOSINOPHILS % (AUTO) 0 % (0-6); HEMATOCRIT 30.3 % (42.0-52.0); HEMOGLOBIN 9.6 g/dl (14.0-17.9); LYMPHOCYTES # (AUTO) 0.9 X10'3 (1.1-4.8); LYMPHOCYTES % (AUTO) 6.4 % (21-51); MEAN CORPUSCULAR HEMOGLOBIN 28.8 PG (27.0-31.0); MEAN CORPUSCULAR HGB CONC 31.7 g/dL (33.0-36.5); MEAN CORPUSCULAR VOLUME 90.8 FL (78-98); MEAN PLATELET VOLUME 8.4 FL (7.4-10.4); MONOCYTES # (AUTO) 1.4 X10'3 (0-0.9); NEUTROPHILS # (AUTO) 11.9 X10'3 (1.8-7.7); NEUTROPHILS % (AUTO) 83.3 % (42-75); PLATELET COUNT 234 X10'3 (140-440); RED BLOOD COUNT 3.33 X10'6 (4.70-6.10); RED CELL DISTRIBUTION WIDTH 15.5 % (11.5-14.5); WHITE BLOOD COUNT 14.3 X10'3 (4.5-11.0)
[2023-06-26 03:16] LABS: ALBUMIN 2.3 G/DL (3.4-5.0); ANION GAP 14 (8-16); BLOOD UREA NITROGEN 24 MG/DL (7-18); BUN/CREATININE RATIO 21.1 (10.0-20.0); CALCIUM 8.8 MG/DL (8.5-10.1); CHLORIDE 106 MMOL/L (99-107); CREATININE 1.14 MG/DL (0.60-1.10); GLUCOSE 218 MG/DL (70-104); MAGNESIUM 2.4 MG/DL (1.5-2.4); PHOSPHORUS 3.7 MG/DL (2.3-4.5); POTASSIUM 4.9 MMOL/L (3.5-5.1); SODIUM 149 MMOL/L (135-145); TOTAL CARBON DIOXIDE 29.4 MMOL/L (24-32); eCRCL 65 ML/MIN; eGFR 65 ML/MIN
[2023-06-26] MEDS: pantoprazole 40mg Tablet.DR PO SCH (07:57)
[2023-06-26] MEDS: aspirin 81mg tab.chew PO SCH (07:57)
[2023-06-26] MEDS: duloxetine 30mg CAPSULE.DR PO SCH (07:58)
[2023-06-26] MEDS: metoprolol tartrate 12.5mg (1/2 tablet) PO SCH ×2 (07:58→20:40)
[2023-06-26] MEDS: mupirocin 2% nasal ointment 1gm UD NS SCH (07:58)
[2023-06-26] MEDS: sennosides/docusate sodium tablet PO SCH ×2 (07:58→20:38)
[2023-06-26] MEDS ORDERED: potassium Cl 40MEQ/1/2NS 520ml 520 ML IV PRN (08:25)
[2023-06-26] MEDS ORDERED: potassium Cl 40MEQ/270ML bag 270 ML IV PRN (08:25)
[2023-06-26] MEDS ORDERED: potassium Cl 20mEq/100mL bag 100 ML IV PRN (08:25)
[2023-06-26] MEDS ORDERED: potassium Cl 20 mEq SR tablet PO PRN ×2 (08:25)
[2023-06-26] MEDS ORDERED: magnesium 4gm in 100ml NS 100 ML IV PRN (08:25)
[2023-06-26] MEDS ORDERED: potassium CL 10mEq/100ml bag 100 ML IV PRN (08:25)
[2023-06-26] MEDS ORDERED: magnesium 2GM in 50ml NS 50 ML IV PRN (08:25)
[2023-06-26] MEDS: amiodarone 200mg tablet PO SCH ×2 (08:47→20:40)
[2023-06-26] MEDS: insulin Lispro (HumaLOG) vial - multi-dose SQ SCH ×4 (08:50→21:13)
--- NOTE | 2023-06-26 11:52 | NUR ---
Pt converted back to Afib.. Pt told RN i feel like I am back in Afib. HR 140's to 150's. Wojciech NIEVES called. Orders obtained.
[2023-06-26] MEDS ORDERED: amiodarone 150mg/dext, iso-os 100 ML IV ONE (11:55)
[2023-06-26] MEDS: insulin glargine (Lantus) pen - multi-dose SQ SCH (13:00)
--- NOTE | 2023-06-26 14:21 | NUR ---
Nutrition consult: Attempted visit with pt at bedside however RD was asked to come back another time. Written DM and post CABG nutrition therapy educations with RD contact information left at bedside and pt encouraged to reach out if needed. Will continue to follow and attempt verbal education at another time as able. Addendum: 06/26/23 at [address] Amended: Links added.
[2023-06-26] MEDS: buPROPion SR 150mg tablet PO SCH (20:37)
[2023-06-26] MEDS: atorvastatin 10mg tablet PO SCH (20:40)
[2023-06-26] MEDS: magnesium Cl slow-release 64mg tablet PO SCH (20:40)
[2023-06-26] MEDS ORDERED: digoxin 250mcg/ml 2ml ampule IV ONE (21:55)
[2023-06-26] MEDS ORDERED: diltiazem 5mg/ml 5ml inj. IV ONE (21:55)
--- NOTE | 2023-06-26 21:56 | NUR ---
Dr Castillo notified of pt going into rapid af in the 140's - new orders for cardizem, dig, check potassium
[2023-06-26] MEDS: diltiazem-NS 100mg/100ml 100 ML IV SCH (23:06)
[2023-06-27] VITALS (24 sets, daily range): BP systolic 95–144; BP diastolic 52–76; PULSE 71–120; RESP 12–30; O2SAT 91–96
[2023-06-27] MEDS: HYDROcodone/acetaminophen 10/325mg tab PO PRN ×6 (00:12→23:46)
[2023-06-27 03:07] LABS: BASOPHILS # (AUTO) 0.1 X10'3 (0-0.2); BASOPHILS % (AUTO) 0.5 % (0-1); EOSINOPHILS # (AUTO) 0.1 X10'3 (0-0.9); EOSINOPHILS % (AUTO) 0.6 % (0-6); HEMATOCRIT 30.6 % (42.0-52.0); HEMOGLOBIN 9.7 g/dl (14.0-17.9); LYMPHOCYTES # (AUTO) 1.4 X10'3 (1.1-4.8); LYMPHOCYTES % (AUTO) 11.5 % (21-51); MEAN CORPUSCULAR HEMOGLOBIN 28.5 PG (27.0-31.0); MEAN CORPUSCULAR HGB CONC 31.8 g/dL (33.0-36.5); MEAN CORPUSCULAR VOLUME 89.8 FL (78-98); MEAN PLATELET VOLUME 8.3 FL (7.4-10.4); MONOCYTES # (AUTO) 1.3 X10'3 (0-0.9); NEUTROPHILS # (AUTO) 9.2 X10'3 (1.8-7.7); NEUTROPHILS % (AUTO) 76.4 % (42-75); PLATELET COUNT 255 X10'3 (140-440); RED BLOOD COUNT 3.41 X10'6 (4.70-6.10); RED CELL DISTRIBUTION WIDTH 15.2 % (11.5-14.5)
[2023-06-27 03:28] LABS: ANION GAP 3 (8-16); BLOOD UREA NITROGEN 23 MG/DL (7-18); CALCIUM 8.6 MG/DL (8.5-10.1); CHLORIDE 106 MMOL/L (99-107); CREATININE 0.92 MG/DL (0.60-1.10); GLUCOSE 153 MG/DL (70-104); POTASSIUM 4.9 MMOL/L (3.5-5.1); SODIUM 142 MMOL/L (135-145); TOTAL CARBON DIOXIDE 33.3 MMOL/L (24-32); eCRCL 81 ML/MIN; eGFR 83 ML/MIN
[2023-06-27 03:29] LABS: ALBUMIN 2.2 G/DL (3.4-5.0); MAGNESIUM 2.2 MG/DL (1.5-2.4); PHOSPHORUS 3.1 MG/DL (2.3-4.5)
[2023-06-27] MEDS: diltiazem-NS 100mg/100ml 100 ML IV SCH ×2 (04:35→09:30)
--- NOTE | 2023-06-27 06:30 | NUR ---
Patient in room CICU 2008. I have received report from JORDIN Auguste and had the opportunity to ask questions and assume patient care.
[2023-06-27] MEDS: sennosides/docusate sodium tablet PO SCH ×2 (08:00→20:00)
[2023-06-27] MEDS: metoprolol tartrate 12.5mg (1/2 tablet) PO SCH ×2 (08:11→21:27)
[2023-06-27] MEDS: duloxetine 30mg CAPSULE.DR PO SCH (08:12)
[2023-06-27] MEDS: aspirin 81mg tab.chew PO SCH (08:12)
[2023-06-27] MEDS: magnesium Cl slow-release 64mg tablet PO SCH ×2 (08:12→21:28)
[2023-06-27] MEDS: pantoprazole 40mg Tablet.DR PO SCH (08:13)
[2023-06-27] MEDS: amiodarone 200mg tablet PO SCH ×2 (08:13→21:28)
[2023-06-27] MEDS: insulin Lispro (HumaLOG) vial - multi-dose SQ SCH ×3 (09:19→21:32)
--- NOTE | 2023-06-27 12:00 | NUR ---
Pt converted to NSR. Dilt gtt stopped per MD Castillo order. Pt in NAD, will continue to monitor.
[2023-06-27] MEDS: insulin glargine (Lantus) pen - multi-dose SQ SCH (13:33)
--- NOTE | 2023-06-27 18:30 | NUR ---
Problems reprioritized. Patient report given, questions answered & plan of care reviewed with JORDIN Johnson.
[2023-06-27] MEDS: enoxaparin 40mg/0.4ml syringe SUBCUT SCH (21:27)
[2023-06-27] MEDS: atorvastatin 10mg tablet PO SCH (21:28)
[2023-06-27] MEDS: buPROPion SR 150mg tablet PO SCH (21:28)
[2023-06-28] VITALS (23 sets, daily range): BP systolic 96–161; BP diastolic 55–94; PULSE 65–153; RESP 13–22; TEMP 97.7; O2SAT 87–98
[2023-06-28] MEDS: pantoprazole 40mg Tablet.DR PO SCH (07:30)
--- NOTE | 2023-06-28 07:32 | NUR ---
O2 Sat at rest on room air:__87_% If below 89%: Recovery O2 Sat at rest on __2_LPM:___96%:___% via nasal cannula____(mask/nasal cannula, etc..) No further documentation is necessary. If O2 Sat did not drop below 89% on room air,ambulate patient on room air. O2 Sat while ambulating on room air:___% Recovery O2 Sat while ambulating on ___LPM:___% No further documentation is necessary. If patient does not drop below 89% while ambulating, he/she does not qualify for home O2.
[2023-06-28] MEDS: HYDROcodone/acetaminophen 10/325mg tab PO PRN ×3 (08:00→18:57)
[2023-06-28 08:07] LABS: BASOPHILS # (AUTO) 0.1 X10'3 (0-0.2); BASOPHILS % (AUTO) 0.8 % (0-1); EOSINOPHILS # (AUTO) 0.3 X10'3 (0-0.9); EOSINOPHILS % (AUTO) 2.4 % (0-6); HEMATOCRIT 36.1 % (42.0-52.0); HEMOGLOBIN 11.3 g/dl (14.0-17.9); LYMPHOCYTES # (AUTO) 1.6 X10'3 (1.1-4.8); LYMPHOCYTES % (AUTO) 14.2 % (21-51); MEAN CORPUSCULAR HEMOGLOBIN 28.6 PG (27.0-31.0); MEAN CORPUSCULAR HGB CONC 31.3 g/dL (33.0-36.5); MEAN CORPUSCULAR VOLUME 91.4 FL (78-98); MEAN PLATELET VOLUME 8.2 FL (7.4-10.4); MONOCYTES # (AUTO) 1.7 X10'3 (0-0.9); MONOCYTES % (AUTO) 15.3 % (2-12); NEUTROPHILS # (AUTO) 7.5 X10'3 (1.8-7.7); NEUTROPHILS % (AUTO) 67.3 % (42-75); PLATELET COUNT 318 X10'3 (140-440); RED BLOOD COUNT 3.94 X10'6 (4.70-6.10); RED CELL DISTRIBUTION WIDTH 15.4 % (11.5-14.5); WHITE BLOOD COUNT 11.1 X10'3 (4.5-11.0)
[2023-06-28] MEDS: insulin Lispro (HumaLOG) vial - multi-dose SQ SCH ×3 (08:29→19:01)
[2023-06-28] MEDS: magnesium Cl slow-release 64mg tablet PO SCH ×2 (08:30→21:01)
[2023-06-28] MEDS: metoprolol tartrate 12.5mg (1/2 tablet) PO SCH ×2 (08:30→21:02)
[2023-06-28] MEDS: duloxetine 30mg CAPSULE.DR PO SCH (08:30)
[2023-06-28] MEDS: sennosides/docusate sodium tablet PO SCH ×2 (08:30→21:01)
[2023-06-28] MEDS: amiodarone 200mg tablet PO SCH ×2 (08:30→21:03)
[2023-06-28] MEDS: aspirin 81mg tab.chew PO SCH (08:31)
[2023-06-28] MEDS: enoxaparin 40mg/0.4ml syringe SUBCUT SCH ×2 (08:31→21:01)
--- NOTE | 2023-06-28 09:29 | NUR ---
Dr. Sarah Talley in to see pt. Stated pt appropriate for floor.
[2023-06-28 09:31] LABS: ALBUMIN 2.3 G/DL (3.4-5.0); ANION GAP 7 (8-16); BLOOD UREA NITROGEN 24 MG/DL (7-18); BUN/CREATININE RATIO 22.2 (10.0-20.0); CALCIUM 8.9 MG/DL (8.5-10.1); CHLORIDE 102 MMOL/L (99-107); CREATININE 1.08 MG/DL (0.60-1.10); GLUCOSE 229 MG/DL (70-104); POTASSIUM 4.5 MMOL/L (3.5-5.1); SODIUM 139 MMOL/L (135-145); eCRCL 69 ML/MIN; eGFR 69 ML/MIN
--- NOTE | 2023-06-28 11:31 | NUR ---
F/u 06/28: Pt/SO seen by OCHOA for verbal DM/heart healthy/high protein diet ed reinforcement. Pt reports still hungry after meals; agreeable to double proteins TIDWM for satiety/wound healing dietary notified. OCHOA encouraged pt/SO to contact dietitian's office if further nutrition questions/concerns. Addendum: 06/28/23 at [address] Amended: Links added.
[2023-06-28 11:59] LABS: MAGNESIUM 2.4 MG/DL (1.5-2.4)
[2023-06-28] MEDS: insulin glargine (Lantus) pen - multi-dose SQ SCH (13:33)
--- NOTE | 2023-06-28 15:42 | NUR ---
Pt. is difficult to get out of chair to bed/BSC etc. Unable to ambulate pt. for safety reasons.
--- NOTE | 2023-06-28 17:24 | NUR ---
Pt. to 3019 via w/c in stable condition with all belongings accompanied with Ely. Accepting RN received phone report and was present at pt. arrival to new room on PCU.
--- NOTE | 2023-06-28 17:30 | NUR ---
Patient in room PCU 3019. I have received report from JORDIN Ruiz and had the opportunity to ask questions and assume patient care.
--- NOTE | 2023-06-28 18:50 | NUR ---
Problems reprioritized. Patient report given, questions answered & plan of care reviewed with JORDIN Fisher.
--- NOTE | 2023-06-28 18:55 | NUR ---
Patient in room PCU 3019. I have received report from JORDIN Edgar and had the opportunity to ask questions and assume patient care. Patient sitting in bedside chair, just finished dinner. is at the bedside. No concerns at this time, I will continue to monitor.
[2023-06-28] MEDS: atorvastatin 10mg tablet PO SCH (21:02)
[2023-06-28] MEDS: buPROPion SR 150mg tablet PO SCH (21:02)
[2023-06-29] VITALS (10 sets, daily range): BP systolic 87–136; BP diastolic 54–66; PULSE 66–81; RESP 14–20; TEMP 97–97.8; O2SAT 92–97
[2023-06-29] MEDS: HYDROcodone/acetaminophen 10/325mg tab PO PRN ×4 (01:12→19:53)
[2023-06-29 06:54] LABS: BASOPHILS # (AUTO) 0.1 X10'3 (0-0.2); BASOPHILS % (AUTO) 0.9 % (0-1); EOSINOPHILS # (AUTO) 0.3 X10'3 (0-0.9); EOSINOPHILS % (AUTO) 4.4 % (0-6); HEMATOCRIT 30.7 % (42.0-52.0); HEMOGLOBIN 9.8 g/dl (14.0-17.9); LYMPHOCYTES # (AUTO) 1.4 X10'3 (1.1-4.8); LYMPHOCYTES % (AUTO) 17.8 % (21-51); MEAN CORPUSCULAR HEMOGLOBIN 28.7 PG (27.0-31.0); MEAN CORPUSCULAR HGB CONC 31.9 g/dL (33.0-36.5); MEAN CORPUSCULAR VOLUME 89.9 FL (78-98); MONOCYTES # (AUTO) 0.8 X10'3 (0-0.9); MONOCYTES % (AUTO) 10.6 % (2-12); NEUTROPHILS # (AUTO) 5.2 X10'3 (1.8-7.7); NEUTROPHILS % (AUTO) 66.3 % (42-75); PLATELET COUNT 318 X10'3 (140-440); RED BLOOD COUNT 3.42 X10'6 (4.70-6.10); WHITE BLOOD COUNT 7.8 X10'3 (4.5-11.0)
[2023-06-29 07:08] LABS: ALBUMIN 1.9 G/DL (3.4-5.0); ANION GAP 4 (8-16); BLOOD UREA NITROGEN 22 MG/DL (7-18); CALCIUM 8.4 MG/DL (8.5-10.1); CHLORIDE 104 MMOL/L (99-107); GLUCOSE 128 MG/DL (70-104); POTASSIUM 4.3 MMOL/L (3.5-5.1); SODIUM 139 MMOL/L (135-145); TOTAL CARBON DIOXIDE 31.3 MMOL/L (24-32); eCRCL 74 ML/MIN; eGFR 76 ML/MIN
[2023-06-29] MEDS: duloxetine 30mg CAPSULE.DR PO SCH (07:17)
[2023-06-29] MEDS: pantoprazole 40mg Tablet.DR PO SCH (07:17)
[2023-06-29] MEDS: magnesium Cl slow-release 64mg tablet PO SCH ×2 (07:17→19:59)
[2023-06-29] MEDS: amiodarone 200mg tablet PO SCH ×2 (07:18→19:59)
[2023-06-29] MEDS: sennosides/docusate sodium tablet PO SCH ×2 (07:18→19:59)
[2023-06-29] MEDS: enoxaparin 40mg/0.4ml syringe SUBCUT SCH ×2 (07:18→20:02)
[2023-06-29] MEDS: metoprolol tartrate 12.5mg (1/2 tablet) PO SCH ×2 (07:23→19:56)
[2023-06-29] MEDS: aspirin 81mg tab.chew PO SCH (09:41)
[2023-06-29] MEDS: insulin Lispro (HumaLOG) vial - multi-dose SQ SCH ×3 (09:47→18:50)
[2023-06-29] MEDS: insulin glargine (Lantus) pen - multi-dose SQ SCH (13:38)
--- NOTE | 2023-06-29 16:48 | NUR ---
Initial: Pt POD # 4 s/p CABG. Pt continues on heart healthy carbohydrate controlled with overall great appetite and an average PO intake 100% x 8 meals. Pt met 95% of estimated kcal needs and 100% of protein estimated needs. No nutrition intervention warranted at this time. LBM on 06/27 receiving routine bowel care per EMR. Will continue to follow. Recommendations: 1.continue heart healthy carbohydrate controlled diet 2.monitor PO intake and need for ONS 3.routine bowel care 4.weekly wts Addendum: 06/29/23 at [address] Amended: Links added.
--- NOTE | 2023-06-29 18:20 | NUR ---
Patient in room PCU 3019. I have received report from JORDIN Rosa and had the opportunity to ask questions and assume patient care. Patient was up to the bathroom w/o problem, has no concerns at this time. I will continue to monitor.
[2023-06-29] MEDS: atorvastatin 10mg tablet PO SCH (19:59)
[2023-06-29] MEDS: buPROPion SR 150mg tablet PO SCH (19:59)
[2023-06-30 02:00] VITALS: BP 131/77; PULSE 71; RESP 23; TEMP 96.3; O2SAT 96
[2023-06-30] MEDS: HYDROcodone/acetaminophen 10/325mg tab PO PRN ×2 (04:41→13:14)
--- NOTE | 2023-06-30 06:54 | NUR ---
Problems reprioritized. Patient report given, questions answered & plan of care reviewed with JORDIN Rosa.
[2023-06-30 07:53] LABS: ANION GAP 3 (8-16); BLOOD UREA NITROGEN 21 MG/DL (7-18); BUN/CREATININE RATIO 20.2 (10.0-20.0); CALCIUM 8.5 MG/DL (8.5-10.1); CHLORIDE 104 MMOL/L (99-107); CREATININE 1.04 MG/DL (0.60-1.10); GLUCOSE 169 MG/DL (70-104); POTASSIUM 4.7 MMOL/L (3.5-5.1); SODIUM 140 MMOL/L (135-145); TOTAL CARBON DIOXIDE 33.4 MMOL/L (24-32); eCRCL 71 ML/MIN; eGFR 72 ML/MIN
[2023-06-30 09:05] VITALS: PULSE 80; RESP 16; O2SAT 95
--- NOTE | 2023-06-30 09:06 | NUR ---
PT adamently refusing bipap, states " tried 2 different mask with home unit not tolerating" Pt denies sob. denies oxygen use at home, pt to call for sob. LIZBETH Merritt notified, new orders to DC bipap orders. Addendum: 06/30/23 at [address] Amended: Links added.
[2023-06-30] MEDS ORDERED: AMI200T PO (09:26)
[2023-06-30] MEDS ORDERED: LOP12.5T PO (09:26)
[2023-06-30] MEDS ORDERED: HYDR-3972 PO (09:26)
[2023-06-30] MEDS ORDERED: ASPI81TA53 PO (09:26)
[2023-06-30 09:58] VITALS: BP_SYST 142; PULSE 66
[2023-06-30] MEDS: metoprolol tartrate 12.5mg (1/2 tablet) PO SCH (09:58)
[2023-06-30] MEDS: aspirin 81mg tab.chew PO SCH (09:58)
[2023-06-30] MEDS: magnesium Cl slow-release 64mg tablet PO SCH (09:58)
[2023-06-30] MEDS: duloxetine 30mg CAPSULE.DR PO SCH (09:59)
[2023-06-30] MEDS: pantoprazole 40mg Tablet.DR PO SCH (09:59)
[2023-06-30] MEDS: amiodarone 200mg tablet PO SCH (09:59)
[2023-06-30] MEDS: sennosides/docusate sodium tablet PO SCH (09:59)
[2023-06-30] MEDS: enoxaparin 40mg/0.4ml syringe SUBCUT SCH (10:00)
[2023-06-30] MEDS: insulin Lispro (HumaLOG) vial - multi-dose SQ SCH ×2 (10:22→14:31)
[2023-06-30] MEDS: insulin glargine (Lantus) pen - multi-dose SQ SCH (13:00)
[2023-06-30 13:14] VITALS: RESP 16
--- NOTE | 2023-06-30 14:38 | NUR ---
Pt has been discharged and is waiting in his hospital bed for DME. The long acting insulin that was scheduled for 1300 is held due to his anticipated discharge home and the Pt. is planning to restart his normal home insulin routine that includes long acting insulin this evening
== END 2023-06-30 15:45 | disposition home or self-care (01) | DRG 235 ==
LOC: PAS IN 06:07 → CICU 2S 11:51 → PCU 3S 06-28 17:08
PROVIDERS: ADMIT Thoracic Surgery (Cardiothoracic Vascular Surgery); ATTEND Thoracic Surgery (Cardiothoracic Vascular Surgery)
PROC: 02100Z9 Bypass Coronary Artery, One Artery from Left Internal Mammary, Open Approach (ICD-10-PCS; 2023-06-24)
PROC: 06BQ4ZZ Excision of Left Saphenous Vein, Percutaneous Endoscopic Approach (ICD-10-PCS; 2023-06-24)
PROC: 5A1221Z Performance of Cardiac Output, Continuous (ICD-10-PCS; 2023-06-24)
PROC: B24BZZ4 Ultrasonography of Heart with Aorta, Transesophageal (ICD-10-PCS; 2023-06-24)
PROC: 021009W Bypass Coronary Artery, One Artery from Aorta with Autologous Venous Tissue, Open Approach (ICD-10-PCS; principal; 2023-06-24 08:16)
PROC: 5A09357 Assistance with Respiratory Ventilation, Less than 24 Consecutive Hours, Continuous Positive Airway Pressure (ICD-10-PCS; 2023-06-25)
DX: I25.10 Atherosclerotic heart disease of native coronary artery without angina pectoris (principal); J96.20 Acute and chronic respiratory failure, unspecified whether with hypoxia or hypercapnia; I50.32 Chronic diastolic (congestive) heart failure; Z68.42 Body mass index [BMI] 45.0-49.9, adult; J98.11 Atelectasis; I48.92 Unspecified atrial flutter; I97.190 Other postprocedural cardiac functional disturbances following cardiac surgery; E03.9 Hypothyroidism, unspecified; R09.02 Hypoxemia; I48.0 Paroxysmal atrial fibrillation; E11.9 Type 2 diabetes mellitus without complications; E66.01 Morbid (severe) obesity due to excess calories; E78.5 Hyperlipidemia, unspecified; I11.0 Hypertensive heart disease with heart failure; G47.33 Obstructive sleep apnea (adult) (pediatric); I87.2 Venous insufficiency (chronic) (peripheral); Z95.5 Presence of coronary angioplasty implant and graft; Y83.2 Surgical operation with anastomosis, bypass or graft as the cause of abnormal reaction of the patient, or of later complication, without mention of misadventure at the time of the procedure; Y92.230 Patient room in hospital as the place of occurrence of the external cause
CPT/HCPCS: 36415; 36600; 71045; 71046; 80048; 80053; 81001; 82330; 82435; 82803; 82947; 82948; 83036; 83735; 84100; 84132; 84295; 84443; 85018; 85025; 85347; 85610; 85730; 86870; 86880; 86885; 86900; 86901; 86902; 86905; 86920; 86922; 87081; 93005; 93312; 93325; 93880; 93970; 94002; 94003; 94010; 94760; 97110; 97116; 97161; 97530; A4333; A4615; A4618; A6213; A6258; A6402; A6449; A7000; A7048; C1751; G0378; J0131; J0171; J0282; J0690; J1160; J1250; J1644; J1650; J1815; J2060; J2150; J2250; J2270; J2704; J2930; J3370; J3475; J3480; J3490; J7030; J7040; J7050; J7120; P9045; P9047; S0020

== ENCOUNTER 2024-01-03 15:14 | Inpatient (IN) | payer MEDICARE, MEDICAID ==
[~2024-01-03] VITALS: Ht 175.3 cm; Wt 148.6 kg
[~2024-01-03 15:14] MED LIST changes: +AMI200T PO; -AMLO10TA16 PO; -BUPR-317 PO; +CLOP75TA34 PO; -DOCUMENT DATE & TIME OF BETA-BLOCKER PO ONE; -DULA4.5P SQ; -Insulin Reg/NS 100units/100mL 100 ML IV SCH; -LISI10TA27 PO; -LORazepam 2 mg/ml vial IV ONE; -METO100T14 PO; +METO50TA16 PO; -TICA90TA PO; -dextrose 50%-water 50ml dispensing syringe IV PRN; -famotidine 20mg tablet PO ONE; -metoprolol tartrate 12.5mg (1/2 tablet) PO ONE; -ringers solution, lacted 1,000 ML IV SCH; -vancomycin 1,500 MG in NS 300ml IV soln IV ONE
[2024-01-03 15:52] LABS: BASOPHILS % (AUTO) 0.4 % (0-1); EOSINOPHILS # (AUTO) 0.2 X10'3 (0-0.9); EOSINOPHILS % (AUTO) 2.9 % (0-6); HEMATOCRIT 43.7 % (42.0-52.0); HEMOGLOBIN 13.9 g/dl (14.0-17.9); LYMPHOCYTES # (AUTO) 1.5 X10'3 (1.1-4.8); LYMPHOCYTES % (AUTO) 20.7 % (21-51); MEAN CORPUSCULAR HEMOGLOBIN 28.6 PG (27.0-31.0); MEAN CORPUSCULAR HGB CONC 31.9 g/dL (33.0-36.5); MEAN CORPUSCULAR VOLUME 89.4 FL (78-98); MEAN PLATELET VOLUME 8.4 FL (7.4-10.4); MONOCYTES # (AUTO) 0.5 X10'3 (0-0.9); MONOCYTES % (AUTO) 6.2 % (2-12); NEUTROPHILS # (AUTO) 5.2 X10'3 (1.8-7.7); NEUTROPHILS % (AUTO) 69.8 % (42-75); PLATELET COUNT 363 X10'3 (140-440); RED BLOOD COUNT 4.88 X10'6 (4.70-6.10); RED CELL DISTRIBUTION WIDTH 15.2 % (11.5-14.5); WHITE BLOOD COUNT 7.4 X10'3 (4.5-11.0)
[2024-01-03 15:56] LABS: ALANINE AMINOTRANSFERASE 19 U/L (12-78); ALBUMIN/GLOBULIN RATIO 0.6 (1.1-1.5); ALKALINE PHOSPHATASE 83 IU/L (46-116); ANION GAP 6 (8-16); ASPARTATE AMINO TRANSFERASE 11 U/L (10-37); BILIRUBIN,TOTAL 0.5 MG/DL (0.1-1.0); BLOOD UREA NITROGEN 20 MG/DL (7-18); BUN/CREATININE RATIO 16.1 (10.0-20.0); CALCIUM 8.6 MG/DL (8.5-10.1); CHLORIDE 102 MMOL/L (99-107); CREATININE 1.24 MG/DL (0.60-1.10); GLUCOSE 270 MG/DL (70-104); POTASSIUM 4.1 MMOL/L (3.5-5.1); SODIUM 140 MMOL/L (135-145); TOTAL CARBON DIOXIDE 32.3 MMOL/L (24-32); eCRCL 61 ML/MIN; eGFR 59 ML/MIN
[2024-01-03 16:04] LABS: PRO BRAIN NATRIURETIC PEPTIDE 648 PG/ML (0-125)
[2024-01-03] MEDS ORDERED: magnesium Cl slow-release 64mg tablet PO PRN (18:05)
[2024-01-03] MEDS ORDERED: potassium Cl 40MEQ/1/2NS 520ml 520 ML IV PRN (18:05)
[2024-01-03] MEDS ORDERED: potassium Cl 20 mEq SR tablet PO PRN ×2 (18:05)
[2024-01-03] MEDS ORDERED: acetaminophen 325mg tablet PO PRN (18:05)
[2024-01-03] MEDS ORDERED: morphine 2 MG/ML inj. syringe IV PRN (18:05)
[2024-01-03] MEDS ORDERED: magnesium 2GM in 50ml NS 50 ML IV PRN (18:05)
[2024-01-03] MEDS ORDERED: ondansetron/PF 4mg/2ml inj IV PRN (18:05)
[2024-01-03] MEDS ORDERED: magnesium 4gm in 100ml NS 100 ML IV PRN (18:05)
[2024-01-03] MEDS: furosemide 10 MG/1 ML 10ml inj IV ONE (18:15)
[2024-01-03] MEDS: PERFLUTREN PROTEIN-A MICROSPHR (Optison) 0.22 MG/ML 3ML VIAL IV ONE (18:32)
[2024-01-03] MEDS: K and/or MAG REPLACEMENT MC SCH (19:30)
[2024-01-03] MEDS: heparin, porcine 5000 units/ml vial SQ SCH (20:11)
[2024-01-04] VITALS (7 sets, daily range): BP systolic 143–181; BP diastolic 69–89; PULSE 70–89; RESP 16–24; TEMP 97.3–98.7; O2SAT 94–99
[2024-01-04] MEDS: HYDROcodone/acetaminophen 5mg/325mg tablet PO PRN (02:24)
[2024-01-04 03:47] LABS: BASOPHILS % (AUTO) 0.4 % (0-1); EOSINOPHILS # (AUTO) 0.2 X10'3 (0-0.9); EOSINOPHILS % (AUTO) 2.2 % (0-6); HEMATOCRIT 39.3 % (42.0-52.0); HEMOGLOBIN 12.7 g/dl (14.0-17.9); LYMPHOCYTES # (AUTO) 1.6 X10'3 (1.1-4.8); LYMPHOCYTES % (AUTO) 18.4 % (21-51); MEAN CORPUSCULAR HEMOGLOBIN 28.9 PG (27.0-31.0); MEAN CORPUSCULAR HGB CONC 32.2 g/dL (33.0-36.5); MEAN CORPUSCULAR VOLUME 89.5 FL (78-98); MEAN PLATELET VOLUME 8.7 FL (7.4-10.4); MONOCYTES # (AUTO) 1.1 X10'3 (0-0.9); MONOCYTES % (AUTO) 12.4 % (2-12); NEUTROPHILS % (AUTO) 66.6 % (42-75); PLATELET COUNT 288 X10'3 (140-440); RED BLOOD COUNT 4.39 X10'6 (4.70-6.10); RED CELL DISTRIBUTION WIDTH 15.2 % (11.5-14.5); WHITE BLOOD COUNT 8.9 X10'3 (4.5-11.0)
[2024-01-04 04:17] LABS: ALBUMIN 2.7 G/DL (3.4-5.0); ANION GAP 6 (8-16); BLOOD UREA NITROGEN 24 MG/DL (7-18); BUN/CREATININE RATIO 17.4 (10.0-20.0); CALCIUM 8.4 MG/DL (8.5-10.1); CHLORIDE 103 MMOL/L (99-107); CREATININE 1.38 MG/DL (0.60-1.10); GLUCOSE 227 MG/DL (70-104); MAGNESIUM 2.1 MG/DL (1.5-2.4); SODIUM 139 MMOL/L (135-145); TOTAL CARBON DIOXIDE 30.1 MMOL/L (24-32); eCRCL 55 ML/MIN; eGFR 52 ML/MIN
[2024-01-04] MEDS: MESSAGE TO PHARMACY PO ONE (09:55)
[2024-01-04] MEDS ORDERED: glucagon, human recombinant 1mg kit SUBCUT PRN (09:55)
[2024-01-04] MEDS ORDERED: dextrose 50%-water 50ml dispensing syringe IV PRN ×2 (09:55)
[2024-01-04] MEDS ORDERED: DEXTROSE 15 GM of carb/4 tabs (each vial/BOTTLE has 4 tablets) PO PRN ×2 (09:55)
[2024-01-04] MEDS: furosemide 10 MG/1 ML 10ml inj IV ONE (12:56)
[2024-01-04] MEDS ORDERED: INSU100V41 SQ (13:28)
[2024-01-04] MEDS ORDERED: LISI5TAB22 PO (13:28)
[2024-01-04] MEDS ORDERED: BUPR150T8 PO (13:28)
[2024-01-04] MEDS ORDERED: INSU100V50 SQ (13:28)
[2024-01-04] MEDS: insulin Lispro (HumaLOG) vial - multi-dose SQ SCH (14:02)
[2024-01-04] MEDS: lisinopril 5mg tablet PO SCH (16:35)
[2024-01-04] MEDS: EMPAGLIFLOZIN 25 MG TABLET PO SCH (16:36)
[2024-01-04] MEDS: clopidogrel 75mg tablet PO SCH (16:36)
[2024-01-04] MEDS: buPROPion SR 150mg tablet PO SCH (16:36)
[2024-01-04] MEDS: furosemide 10 MG/1 ML 10ml inj IV SCH (20:27)
[2024-01-04] MEDS: amiodarone 200mg tablet PO SCH (20:33)
[2024-01-04] MEDS: metoprolol tartrate 50mg tablet PO SCH (20:33)
[2024-01-04] MEDS: ezetimibe 10mg tablet PO SCH (20:33)
[2024-01-04] MEDS: pantoprazole 40mg Tablet.DR PO SCH (20:34)
[2024-01-04] MEDS: insulin glargine (Lantus) pen - multi-dose SQ SCH (20:46)
[2024-01-04] MEDS ORDERED: INSULIN DEGLUDEC 80 UNIT SQ SCH (21:00)
[2024-01-05 02:00] VITALS: BP 158/80; PULSE 75; RESP 20; TEMP 97.9; O2SAT 92
[2024-01-05 06:00] VITALS: BP 128/57; PULSE 65; RESP 20; TEMP 98.4; O2SAT 99
[2024-01-05 06:23] LABS: ALBUMIN 2.7 G/DL (3.4-5.0); ANION GAP 5 (8-16); BLOOD UREA NITROGEN 24 MG/DL (7-18); BUN/CREATININE RATIO 16.6 (10.0-20.0); CALCIUM 8.6 MG/DL (8.5-10.1); CHLORIDE 103 MMOL/L (99-107); CREATININE 1.45 MG/DL (0.60-1.10); GLUCOSE 184 MG/DL (70-104); MAGNESIUM 2.5 MG/DL (1.5-2.4); POTASSIUM 4.1 MMOL/L (3.5-5.1); SODIUM 142 MMOL/L (135-145); TOTAL CARBON DIOXIDE 33.9 MMOL/L (24-32); eCRCL 52 ML/MIN; eGFR 49 ML/MIN
[2024-01-05 06:24] LABS: BASOPHILS % (AUTO) 0.8 % (0-1); EOSINOPHILS # (AUTO) 0.2 X10'3 (0-0.9); EOSINOPHILS % (AUTO) 3.5 % (0-6); HEMATOCRIT 40.5 % (42.0-52.0); HEMOGLOBIN 13.4 g/dl (14.0-17.9); LYMPHOCYTES # (AUTO) 1.5 X10'3 (1.1-4.8); MEAN CORPUSCULAR HEMOGLOBIN 29.5 PG (27.0-31.0); MEAN CORPUSCULAR VOLUME 89.4 FL (78-98); MEAN PLATELET VOLUME 8.4 FL (7.4-10.4); MONOCYTES # (AUTO) 0.7 X10'3 (0-0.9); MONOCYTES % (AUTO) 12.6 % (2-12); NEUTROPHILS % (AUTO) 55.1 % (42-75); PLATELET COUNT 303 X10'3 (140-440); RED BLOOD COUNT 4.53 X10'6 (4.70-6.10); RED CELL DISTRIBUTION WIDTH 15.2 % (11.5-14.5); WHITE BLOOD COUNT 5.5 X10'3 (4.5-11.0)
[2024-01-05 08:00] VITALS: RESP 20; O2SAT 95
[2024-01-05] MEDS: duloxetine 30mg CAPSULE.DR PO SCH (08:14)
[2024-01-05] MEDS: atorvastatin 20mg tablet PO SCH (08:15)
[2024-01-05 11:00] VITALS: BP 121/64; PULSE 54; RESP 20; TEMP 98; O2SAT 96
[2024-01-05 15:00] VITALS: BP 123/57; PULSE 65; RESP 16; TEMP 98; O2SAT 95
[2024-01-05] MEDS ORDERED: FURO-149 PO (15:45)
[2024-01-05 16:42] VITALS: BP 138/81; PULSE 73; RESP 18; TEMP 98.1; O2SAT 94
== END 2024-01-05 19:15 | disposition home or self-care (01) | DRG 291 ==
LOC: ER 15:15 → ED HOLD 18:07 → PCU 3S 01-04 14:40 → UNDODISIN 01-05 18:10
PROVIDERS: ADMIT Internal Medicine; ATTEND Internal Medicine
DX: I11.0 Hypertensive heart disease with heart failure (principal); I50.43 Acute on chronic combined systolic (congestive) and diastolic (congestive) heart failure; I48.91 Unspecified atrial fibrillation; M79.7 Fibromyalgia; K21.9 Gastro-esophageal reflux disease without esophagitis; E11.9 Type 2 diabetes mellitus without complications; E78.5 Hyperlipidemia, unspecified; G89.29 Other chronic pain; M54.9 Dorsalgia, unspecified; I25.10 Atherosclerotic heart disease of native coronary artery without angina pectoris; N40.0 Benign prostatic hyperplasia without lower urinary tract symptoms; Z88.0 Allergy status to penicillin; Z88.1 Allergy status to other antibiotic agents; Z95.1 Presence of aortocoronary bypass graft; Z79.01 Long term (current) use of anticoagulants; Z79.4 Long term (current) use of insulin; Z79.84 Long term (current) use of oral hypoglycemic drugs; Z79.899 Other long term (current) drug therapy; Z79.02 Long term (current) use of antithrombotics/antiplatelets
CPT/HCPCS: 36415; 71045; 80048; 80053; 82948; 83036; 83735; 83880; 84484; 85025; 87081; 93005; 93308; 99285; A4615; G0378; J1644; J1815; J1940

== ENCOUNTER 2024-02-04 23:10 | Emergency (ER) | payer MEDICARE, MEDICAID ==
[~2024-02-04] VITALS: Ht 175.3 cm; Wt 148.3 kg
[~2024-02-04 23:10] MED LIST changes: +BUPR150T8 PO; +FURO-149 PO; -HUM7525 SQ; +INSU100V41 SQ; +INSU100V50 SQ; +LISI5TAB22 PO
[2024-02-04 23:29] VITALS: BP 184/93; PULSE 78; RESP 16; TEMP 98.2; O2SAT 96
== END 2024-02-05 02:32 | disposition left against medical advice (07) ==
LOC: ER 23:11
DX: F32.A Depression, unspecified (principal); Z53.21 Procedure and treatment not carried out due to patient leaving prior to being seen by health care provider
CPT/HCPCS: 99281

== ENCOUNTER 2024-02-29 20:46 | Emergency (ER) | payer MEDICARE, MEDICAID ==
[~2024-02-29] VITALS: Ht 175.3 cm; Wt 145.0 kg
[2024-03-01] MEDS: furosemide 40mg/4ml inj IV ONE (00:20)
[2024-03-01] MEDS: cefepime 2g/NS 100ml ADVANTAGE 100 ML IV SCH (00:20)
[2024-03-01 00:23] LABS: BASOPHILS # (AUTO) 0.1 X10'3 (0-0.2); BASOPHILS % (AUTO) 0.7 % (0-1); EOSINOPHILS # (AUTO) 0.2 X10'3 (0-0.9); EOSINOPHILS % (AUTO) 2.3 % (0-6); HEMOGLOBIN 13.6 g/dl (14.0-17.9); LYMPHOCYTES # (AUTO) 1.7 X10'3 (1.1-4.8); MEAN CORPUSCULAR HEMOGLOBIN 29.4 PG (27.0-31.0); MEAN CORPUSCULAR HGB CONC 32.4 g/dL (33.0-36.5); MEAN CORPUSCULAR VOLUME 90.7 FL (78-98); MEAN PLATELET VOLUME 8.3 FL (7.4-10.4); MONOCYTES # (AUTO) 0.9 X10'3 (0-0.9); MONOCYTES % (AUTO) 10.5 % (2-12); NEUTROPHILS # (AUTO) 5.6 X10'3 (1.8-7.7); NEUTROPHILS % (AUTO) 66.5 % (42-75); PLATELET COUNT 324 X10'3 (140-440); RED BLOOD COUNT 4.63 X10'6 (4.70-6.10); RED CELL DISTRIBUTION WIDTH 14.1 % (11.5-14.5); WHITE BLOOD COUNT 8.4 X10'3 (4.5-11.0)
[2024-03-01 00:26] LABS: APTT 26 SECONDS (22-32); PROTHROMBIN TIME 10.9 SECONDS (9.0-12.0)
[2024-03-01 00:36] LABS: ALBUMIN 2.8 G/DL (3.4-5.0); ANION GAP 10 (8-16); BLOOD UREA NITROGEN 24 MG/DL (7-18); BUN/CREATININE RATIO 18.3 (10.0-20.0); CHLORIDE 103 MMOL/L (99-107); CREATININE 1.31 MG/DL (0.60-1.10); GLUCOSE 188 MG/DL (70-104); POTASSIUM 4.4 MMOL/L (3.5-5.1); PRO BRAIN NATRIURETIC PEPTIDE 342 PG/ML (0-125); SODIUM 141 MMOL/L (135-145); TOTAL CARBON DIOXIDE 27.7 MMOL/L (24-32); eCRCL 58 ML/MIN; eGFR 55 ML/MIN
[2024-03-01] MEDS: VANCOMYCIN 1,500MG inj. 1,500 MG in normal saline 500ml IV soln 300 ML IV SCH (01:22)
[2024-03-01] MEDS ORDERED: CLIN300C3 PO (03:26)
[2024-03-01] MEDS ORDERED: SULF1TAB49 PO (03:26)
[2024-03-01] MEDS: ondansetron/PF 4mg/2ml inj IV ONE (03:28)
[2024-03-01] MEDS: morphine 4 MG/ML inj SYRINge IV ONE (03:28)
[2024-03-01 03:58] VITALS: BP 163/76; PULSE 80; RESP 18; TEMP 97.8; O2SAT 94
== END 2024-03-01 04:04 | disposition home or self-care (01) ==
LOC: ER 20:47
DX: L03.115 Cellulitis of right lower limb (principal); L03.116 Cellulitis of left lower limb; R60.0 Localized edema; I25.10 Atherosclerotic heart disease of native coronary artery without angina pectoris; I10 Essential (primary) hypertension; K21.9 Gastro-esophageal reflux disease without esophagitis; G89.29 Other chronic pain; M54.9 Dorsalgia, unspecified; M79.7 Fibromyalgia; Z88.0 Allergy status to penicillin; Z88.1 Allergy status to other antibiotic agents
CPT/HCPCS: 36415; 71045; 80048; 83605; 83880; 85025; 85610; 85730; 87040; 93970; 96365; 96366; 96367; 96375; 99285; J0692; J1940; J2270; J2405; J3370; J7040; 96368; 96374

== ENCOUNTER 2024-04-21 09:13 | Outpatient (CLI) | payer MEDICARE, MEDICAID | END 2024-04-21 23:59 | disposition home or self-care (01) | LOC: RAD 09:13 | PROVIDERS: ATTEND Thoracic Surgery (Cardiothoracic Vascular Surgery) | DX: J90 Pleural effusion, not elsewhere classified (principal); I25.10 Atherosclerotic heart disease of native coronary artery without angina pectoris; R07.2 Precordial pain; Z90.2 Acquired absence of lung [part of] | CPT/HCPCS: 71250 ==

== ENCOUNTER 2024-09-12 16:36 | Emergency (ER) | payer MEDICARE, OTHER ==
[~2024-09-12] VITALS: Ht 175.3 cm; Wt 145.4 kg
[~2024-09-12 16:36] MED LIST changes: -ROSU40TA22 PO; +ROSU40TA89 PO
[2024-09-12 16:45] VITALS: BP 136/88; RESP 18; O2SAT 94
== END 2024-09-12 17:27 | disposition home or self-care (01) ==
LOC: ER 16:36
DX: F32.A Depression, unspecified (principal); G89.29 Other chronic pain; K21.9 Gastro-esophageal reflux disease without esophagitis; M79.7 Fibromyalgia; I11.0 Hypertensive heart disease with heart failure; I25.10 Atherosclerotic heart disease of native coronary artery without angina pectoris; I50.9 Heart failure, unspecified; E11.9 Type 2 diabetes mellitus without complications; Z88.0 Allergy status to penicillin; Z88.8 Allergy status to other drugs, medicaments and biological substances; Z79.899 Other long term (current) drug therapy; Z79.4 Long term (current) use of insulin; Z95.1 Presence of aortocoronary bypass graft
CPT/HCPCS: 99281

== ENCOUNTER 2024-12-01 19:26 | Emergency (ER) | payer MEDICARE, MEDICAID ==
[~2024-12-01] VITALS: Ht 175.3 cm; Wt 145.4 kg
[2024-12-01 19:31] VITALS: TEMP 98.9
[2024-12-01 19:57] LABS: BASOPHILS % (AUTO) 0.7 % (0-1); EOSINOPHILS # (AUTO) 0.1 X10'3 (0-0.9); EOSINOPHILS % (AUTO) 2.1 % (0-6); HEMATOCRIT 40.6 % (42.0-52.0); HEMOGLOBIN 13.2 g/dl (14.0-17.9); LYMPHOCYTES # (AUTO) 1.2 X10'3 (1.1-4.8); LYMPHOCYTES % (AUTO) 17.8 % (21-51); MEAN CORPUSCULAR HEMOGLOBIN 30.2 PG (27.0-31.0); MEAN CORPUSCULAR HGB CONC 32.6 g/dL (33.0-36.5); MEAN CORPUSCULAR VOLUME 92.8 FL (78-98); MEAN PLATELET VOLUME 8.5 FL (7.4-10.4); MONOCYTES # (AUTO) 0.8 X10'3 (0-0.9); MONOCYTES % (AUTO) 11.3 % (2-12); NEUTROPHILS # (AUTO) 4.6 X10'3 (1.8-7.7); NEUTROPHILS % (AUTO) 68.1 % (42-75); PLATELET COUNT 347 X10'3 (140-440); RED BLOOD COUNT 4.38 X10'6 (4.70-6.10); RED CELL DISTRIBUTION WIDTH 14.4 % (11.5-14.5); WHITE BLOOD COUNT 6.7 X10'3 (4.5-11.0)
[2024-12-01 20:26] LABS: ALANINE AMINOTRANSFERASE 17 U/L (12-78); ALBUMIN 2.8 G/DL (3.4-5.0); ALBUMIN/GLOBULIN RATIO 0.6 (1.1-1.5); ALKALINE PHOSPHATASE 92 IU/L (46-116); ANION GAP 8 (8-16); ASPARTATE AMINO TRANSFERASE 12 U/L (10-37); BILIRUBIN,TOTAL 0.3 MG/DL (0.1-1.0); BLOOD UREA NITROGEN 26 MG/DL (7-18); BUN/CREATININE RATIO 17.6 (10.0-20.0); CALCIUM 9.2 MG/DL (8.5-10.1); CHLORIDE 100 MMOL/L (99-107); CREATININE 1.48 MG/DL (0.60-1.10); POTASSIUM 4.3 MMOL/L (3.5-5.1); PRO BRAIN NATRIURETIC PEPTIDE 682 PG/ML (0-125); SODIUM 138 MMOL/L (135-145); TOTAL CARBON DIOXIDE 30.1 MMOL/L (24-32); TOTAL PROTEIN 7.4 G/DL (6.4-8.2); eCRCL 50 ML/MIN; eGFR 48 ML/MIN
[2024-12-01 20:35] LABS: GLUCOSE 443 MG/DL (70-104)
[2024-12-01] MEDS: hydrALAZINE 25 MG tablet PO ONE (23:51)
[2024-12-02 00:29] VITALS: BP 174/99; PULSE 79; RESP 15; O2SAT 95
== END 2024-12-02 00:31 | disposition home or self-care (01) ==
LOC: ER 19:26
DX: I11.0 Hypertensive heart disease with heart failure (principal); I50.9 Heart failure, unspecified; I25.10 Atherosclerotic heart disease of native coronary artery without angina pectoris; K21.9 Gastro-esophageal reflux disease without esophagitis; M79.7 Fibromyalgia; G89.29 Other chronic pain; M54.9 Dorsalgia, unspecified; E11.9 Type 2 diabetes mellitus without complications; Z91.148 Patient's other noncompliance with medication regimen for other reason; Z88.1 Allergy status to other antibiotic agents; Z79.4 Long term (current) use of insulin; Z79.899 Other long term (current) drug therapy; Z95.1 Presence of aortocoronary bypass graft; Z88.0 Allergy status to penicillin
CPT/HCPCS: 36415; 71045; 80053; 83880; 84484; 85025; 93005; 99285; A4615

== ENCOUNTER 2025-02-01 18:49 | Inpatient (IN) | payer MEDICARE, MEDICAID ==
[~2025-02-01] VITALS: Ht 175.3 cm; Wt 150.0 kg
[2025-02-01 19:33] LABS: BASOPHILS # (AUTO) 0.1 X10'3 (0-0.2); EOSINOPHILS # (AUTO) 0.2 X10'3 (0-0.9); EOSINOPHILS % (AUTO) 2.6 % (0-6); HEMATOCRIT 36.2 % (42.0-52.0); HEMOGLOBIN 11.7 g/dl (14.0-17.9); LYMPHOCYTES # (AUTO) 0.5 X10'3 (1.1-4.8); LYMPHOCYTES % (AUTO) 6.5 % (21-51); MEAN CORPUSCULAR HEMOGLOBIN 30.4 PG (27.0-31.0); MEAN CORPUSCULAR HGB CONC 32.2 g/dL (33.0-36.5); MEAN CORPUSCULAR VOLUME 94.5 FL (78-98); MEAN PLATELET VOLUME 8.2 FL (7.4-10.4); MONOCYTES # (AUTO) 0.5 X10'3 (0-0.9); MONOCYTES % (AUTO) 6.6 % (2-12); NEUTROPHILS # (AUTO) 5.8 X10'3 (1.8-7.7); NEUTROPHILS % (AUTO) 83.3 % (42-75); PLATELET COUNT 332 X10'3 (140-440); RED BLOOD COUNT 3.84 X10'6 (4.70-6.10)
[2025-02-01] MEDS: nitroGLYCERIN 1gm ointment UD TP ONE (19:55)
[2025-02-01] MEDS: furosemide 10 MG/1 ML 10ml inj IV ONE (19:55)
[2025-02-01 19:56] LABS: ALANINE AMINOTRANSFERASE 15 U/L (12-78); ALBUMIN 2.4 G/DL (3.4-5.0); ALBUMIN/GLOBULIN RATIO 0.4 (1.1-1.5); ALKALINE PHOSPHATASE 91 IU/L (46-116); ANION GAP 2 (8-16); ASPARTATE AMINO TRANSFERASE 7 U/L (10-37); BILIRUBIN,TOTAL 0.7 MG/DL (0.1-1.0); BLOOD UREA NITROGEN 13 MG/DL (7-18); BUN/CREATININE RATIO 12.7 (10.0-20.0); CALCIUM 9.1 MG/DL (8.5-10.1); CHLORIDE 101 MMOL/L (99-107); CREATININE 1.02 MG/DL (0.60-1.10); GLUCOSE 301 MG/DL (70-104); POTASSIUM 4.4 MMOL/L (3.5-5.1); SODIUM 140 MMOL/L (135-145); TOTAL CARBON DIOXIDE 37.1 MMOL/L (24-32); TOTAL PROTEIN 7.8 G/DL (6.4-8.2); eCRCL 73 ML/MIN; eGFR 74 ML/MIN
[2025-02-01 19:58] LABS: PRO BRAIN NATRIURETIC PEPTIDE 2191 PG/ML (0-125)
[2025-02-01] MEDS: furosemide 40mg/4ml inj IV ONE (20:54)
[2025-02-01] MEDS: ipratropium/albuterol 3ml nebule NEB ONE (20:58)
[2025-02-01 21:00] VITALS: PULSE 68; RESP 20; O2SAT 97
[2025-02-01 21:04] VITALS: PULSE 68; RESP 18; O2SAT 98
[2025-02-01] MEDS ORDERED: HYDROmorphone 1 mg/ml syringe IV ONE (22:00)
[2025-02-01] MEDS ORDERED: phenazopyridine 100mg tablet PO ONE (22:00)
[2025-02-01] MEDS ORDERED: magnesium sulf-water 2g/50mL 50 ML IV PRN (22:15)
[2025-02-01] MEDS ORDERED: potassium Cl 20 mEq SR tablet PO PRN ×2 (22:15)
[2025-02-01] MEDS ORDERED: potassium Cl 40MEQ/1/2NS 520ml 520 ML IV PRN (22:15)
[2025-02-01] MEDS ORDERED: albuterol 2.5 MG/3 ML nebule NEB PRN (22:15)
[2025-02-01] MEDS ORDERED: magnesium Cl slow-release 64mg tablet PO PRN (22:15)
[2025-02-01] MEDS ORDERED: acetaminophen 325mg tablet PO PRN ×2 (22:15)
[2025-02-01] MEDS ORDERED: magnesium hydroxide 30ml (MOM) UD suspension PO PRN (22:15)
[2025-02-01] MEDS ORDERED: magnesium sulf-water 4G/100mL 100 ML IV PRN (22:15)
[2025-02-01] MEDS ORDERED: HYDROcodone/acetaminophen 5mg/325mg tablet PO PRN (22:15)
[2025-02-01] MEDS ORDERED: ondansetron/PF 4mg/2ml inj IV PRN (22:15)
[2025-02-01 22:41] LABS: APTT 29 SECONDS (22-32); INR 1.1 INR; PROTHROMBIN TIME 11.4 SECONDS (9.0-12.0)
[2025-02-01 22:43] LABS: PHOSPHORUS 3.4 MG/DL (2.3-4.5)
[2025-02-01 22:49] LABS: HEMOGLOBIN A1C 9.1 % (4.5-6.2)
[2025-02-01 22:56] LABS: ABG BASE EXCESS 9.9 mmol/L (-2.0-3.0); ABG HCO3 36.7 mmol/L (21.0-28.0); ABG OXYGEN SATURATION 90.1 % (94.0-98.0); ABG PCO2 (T) 60.6 mmHg (35.0-48.0); ABG PO2 (T) 58.2 mmHg (83.0-108.0); ALLEN'S TEST POSITIVE; FHHb 9.8 % (0.0-5.0); FLOW 4 L/min; FMetHb 0.3 % (0.0-1.5); FO2Hb 88.9 % (94.0-98.0); MODE NASAL CANNULA; TOTAL HEMOGLOBIN 12.2 G/dl (13.5-17.5)
[2025-02-02] VITALS (11 sets, daily range): BP systolic 104–165; BP diastolic 42–74; PULSE 60–88; RESP 10–26; TEMP 97.2–98.2; O2SAT 94–98
[2025-02-02 00:51] LABS: BILIRUBIN,URINE NEGATIVE (Neg); CLARITY,URINE CLEAR (Clear); COLOR,URINE YELLOW (Yellow); GLUCOSE, URINE 100 mg/dl (Neg); KETONES,URINE NEGATIVE (Neg); LEUKOCYTE ESTERASE ,URINE NEGATIVE (Neg); NITRITES, URINE NEGATIVE (Neg); OCCULT BLOOD,URINE NEGATIVE (Neg); PH,URINE 5.5 (4.8-8.0); PROTEIN,URINE NEGATIVE (Neg); UROBILINOGEN,URINE 0.2 E.U/dL (0.2-1.0)
[2025-02-02 01:26] LABS: UA COLLECTION TYPE CLN CATCH MIDSTREAM
[2025-02-02 06:45] LABS: BASOPHILS # (AUTO) 0.1 X10'3 (0-0.2); BASOPHILS % (AUTO) 0.6 % (0-1); EOSINOPHILS # (AUTO) 0.2 X10'3 (0-0.9); EOSINOPHILS % (AUTO) 2.3 % (0-6); HEMATOCRIT 33.2 % (42.0-52.0); HEMOGLOBIN 10.8 g/dl (14.0-17.9); LYMPHOCYTES # (AUTO) 0.7 X10'3 (1.1-4.8); LYMPHOCYTES % (AUTO) 6.7 % (21-51); MEAN CORPUSCULAR HEMOGLOBIN 30.4 PG (27.0-31.0); MEAN CORPUSCULAR HGB CONC 32.4 g/dL (33.0-36.5); MEAN CORPUSCULAR VOLUME 93.8 FL (78-98); MONOCYTES # (AUTO) 0.8 X10'3 (0-0.9); MONOCYTES % (AUTO) 7.5 % (2-12); NEUTROPHILS # (AUTO) 8.4 X10'3 (1.8-7.7); NEUTROPHILS % (AUTO) 82.9 % (42-75); PLATELET COUNT 330 X10'3 (140-440); RED BLOOD COUNT 3.53 X10'6 (4.70-6.10); RED CELL DISTRIBUTION WIDTH 14.3 % (11.5-14.5); WHITE BLOOD COUNT 10.1 X10'3 (4.5-11.0)
[2025-02-02] MEDS: INSULIN LISPRO 100 UNIT/ML INSULN.PEN MULTI-DOSE SQ SCH ×2 (07:00→09:00)
[2025-02-02 07:06] LABS: ALANINE AMINOTRANSFERASE 15 U/L (12-78); ALBUMIN 2.2 G/DL (3.4-5.0); ALBUMIN/GLOBULIN RATIO 0.5 (1.1-1.5); ALKALINE PHOSPHATASE 81 IU/L (46-116); ANION GAP 2 (8-16); ASPARTATE AMINO TRANSFERASE 7 U/L (10-37); BILIRUBIN,TOTAL 0.7 MG/DL (0.1-1.0); BLOOD UREA NITROGEN 15 MG/DL (7-18); BUN/CREATININE RATIO 15.5 (10.0-20.0); CALCIUM 8.6 MG/DL (8.5-10.1); CHLORIDE 100 MMOL/L (99-107); CHOLESTEROL 137 MG/DL (0-200); CREATININE 0.97 MG/DL (0.60-1.10); GLUCOSE 260 MG/DL (70-104); HDL CHOLESTEROL 46 MG/DL (35-60); LDL CHOLESTEROL 75 MG/DL (50-100); SODIUM 140 MMOL/L (135-145); TOTAL CARBON DIOXIDE 38.2 MMOL/L (24-32); TRIGLYCERIDES 93 MG/DL (20-135); eCRCL 77 ML/MIN; eGFR 78 ML/MIN
[2025-02-02] MEDS: K and/or MAG REPLACEMENT MC SCH (08:00)
[2025-02-02] MEDS ORDERED: DEXTROSE 15 GM of carb/4 tabs (each vial/BOTTLE has 4 tablets) PO PRN ×2 (08:10)
[2025-02-02] MEDS ORDERED: dextrose 50%-water 50ml dispensing syringe IV PRN ×2 (08:10)
[2025-02-02] MEDS ORDERED: glucagon, human recombinant 1mg kit SUBCUT PRN (08:10)
[2025-02-02] MEDS: EMPAGLIFLOZIN 25 MG TABLET PO SCH (08:26)
[2025-02-02] MEDS: amiodarone 200mg tablet PO SCH (08:26)
[2025-02-02] MEDS: docusate sod 100mg capsule PO SCH (08:26)
[2025-02-02] MEDS: duloxetine 30mg CAPSULE.DR PO SCH (08:27)
[2025-02-02] MEDS: atorvastatin 20mg tablet PO SCH (08:27)
[2025-02-02] MEDS: clopidogrel 75mg tablet PO SCH (08:28)
[2025-02-02] MEDS: metoprolol tartrate 50mg tablet PO SCH (08:28)
[2025-02-02] MEDS: lisinopril 5mg tablet PO SCH (08:29)
[2025-02-02] MEDS: buPROPion SR 150mg tablet PO SCH (08:29)
[2025-02-02] MEDS: furosemide 10 MG/1 ML 10ml inj IV SCH (08:33)
[2025-02-02] MEDS: enoxaparin 40mg/0.4ml syringe SUBCUT SCH (08:36)
[2025-02-02] MEDS: ipratropium/albuterol 3ml nebule NEB PRN (15:45)
[2025-02-02] MEDS: insulin glargine (Lantus) pen - multi-dose SQ SCH (21:55)
[2025-02-02] MEDS: ezetimibe 10mg tablet PO SCH (21:57)
[2025-02-02] MEDS: furosemide 20MG tablet PO ONE (21:57)
[2025-02-02] MEDS: pantoprazole 40mg Tablet.DR PO SCH (21:57)
[2025-02-02] MEDS: nystatin 15 GM powder TP SCH (21:57)
[2025-02-02] MEDS: mag hydrox/Alum hydrox/simeth 30ml oral suspension PO PRN (22:58)
[2025-02-03] VITALS (8 sets, daily range): BP systolic 122–144; BP diastolic 43–90; PULSE 61–88; RESP 15–24; TEMP 96.7–97.8; O2SAT 90–99
[2025-02-03 05:57] LABS: BASOPHILS # (AUTO) 0.1 X10'3 (0-0.2); EOSINOPHILS # (AUTO) 0.3 X10'3 (0-0.9); EOSINOPHILS % (AUTO) 4.1 % (0-6); HEMOGLOBIN 10.8 g/dl (14.0-17.9); LYMPHOCYTES % (AUTO) 12.1 % (21-51); MEAN CORPUSCULAR HEMOGLOBIN 30.1 PG (27.0-31.0); MEAN CORPUSCULAR HGB CONC 31.7 g/dL (33.0-36.5); MONOCYTES # (AUTO) 0.7 X10'3 (0-0.9); MONOCYTES % (AUTO) 9.2 % (2-12); NEUTROPHILS # (AUTO) 5.9 X10'3 (1.8-7.7); NEUTROPHILS % (AUTO) 73.6 % (42-75); PLATELET COUNT 329 X10'3 (140-440); RED BLOOD COUNT 3.58 X10'6 (4.70-6.10); RED CELL DISTRIBUTION WIDTH 14.2 % (11.5-14.5); WHITE BLOOD COUNT 8.1 X10'3 (4.5-11.0)
[2025-02-03 06:09] LABS: ALANINE AMINOTRANSFERASE 12 U/L (12-78); ALBUMIN 2.3 G/DL (3.4-5.0); ALBUMIN/GLOBULIN RATIO 0.5 (1.1-1.5); ALKALINE PHOSPHATASE 81 IU/L (46-116); ANION GAP 2 (8-16); ASPARTATE AMINO TRANSFERASE 9 U/L (10-37); BILIRUBIN,TOTAL 0.6 MG/DL (0.1-1.0); BLOOD UREA NITROGEN 25 MG/DL (7-18); BUN/CREATININE RATIO 19.5 (10.0-20.0); CALCIUM 8.9 MG/DL (8.5-10.1); CHLORIDE 100 MMOL/L (99-107); CREATININE 1.28 MG/DL (0.60-1.10); GLUCOSE 189 MG/DL (70-104); MAGNESIUM 2.4 MG/DL (1.5-2.4); POTASSIUM 4.1 MMOL/L (3.5-5.1); SODIUM 141 MMOL/L (135-145); TOTAL PROTEIN 7.2 G/DL (6.4-8.2); eCRCL 58 ML/MIN; eGFR 57 ML/MIN
[2025-02-03] MEDS: furosemide 40mg tablet PO SCH (08:40)
[2025-02-03] MEDS ORDERED: ondansetron 4mg rapidly disintigrating tab PO PRN (16:45)
[2025-02-04 02:00] VITALS: BP 110/67; PULSE 66; RESP 18; TEMP 97.6; O2SAT 97
[2025-02-04 06:17] LABS: ALANINE AMINOTRANSFERASE 20 U/L (12-78); ALBUMIN 2.5 G/DL (3.4-5.0); ALBUMIN/GLOBULIN RATIO 0.5 (1.1-1.5); ALKALINE PHOSPHATASE 84 IU/L (46-116); ANION GAP 2 (8-16); ASPARTATE AMINO TRANSFERASE 29 U/L (10-37); BILIRUBIN,TOTAL 0.6 MG/DL (0.1-1.0); BLOOD UREA NITROGEN 32 MG/DL (7-18); BUN/CREATININE RATIO 22.9 (10.0-20.0); CALCIUM 9.1 MG/DL (8.5-10.1); CHLORIDE 100 MMOL/L (99-107); GLUCOSE 180 MG/DL (70-104); MAGNESIUM 2.4 MG/DL (1.5-2.4); SODIUM 143 MMOL/L (135-145); TOTAL PROTEIN 7.6 G/DL (6.4-8.2); eCRCL 53 ML/MIN; eGFR 51 ML/MIN
[2025-02-04 06:18] LABS: BASOPHILS # (AUTO) 0.1 X10'3 (0-0.2); BASOPHILS % (AUTO) 0.7 % (0-1); EOSINOPHILS # (AUTO) 0.3 X10'3 (0-0.9); EOSINOPHILS % (AUTO) 3.7 % (0-6); HEMATOCRIT 33.9 % (42.0-52.0); LYMPHOCYTES # (AUTO) 0.9 X10'3 (1.1-4.8); LYMPHOCYTES % (AUTO) 9.7 % (21-51); MEAN CORPUSCULAR HEMOGLOBIN 30.5 PG (27.0-31.0); MEAN CORPUSCULAR HGB CONC 32.3 g/dL (33.0-36.5); MEAN CORPUSCULAR VOLUME 94.2 FL (78-98); MEAN PLATELET VOLUME 8.2 FL (7.4-10.4); MONOCYTES # (AUTO) 0.8 X10'3 (0-0.9); MONOCYTES % (AUTO) 8.3 % (2-12); NEUTROPHILS % (AUTO) 77.6 % (42-75); PLATELET COUNT 388 X10'3 (140-440); RED CELL DISTRIBUTION WIDTH 14.7 % (11.5-14.5)
[2025-02-04 06:29] LABS: POTASSIUM 4.3 MMOL/L (3.5-5.1)
[2025-02-04 06:51] LABS: TOTAL CARBON DIOXIDE 40.9 MMOL/L (24-32)
[2025-02-04 08:00] VITALS: RESP 21; O2SAT 93
[2025-02-04 08:32] VITALS: BP_SYST 136; PULSE 75
[2025-02-04] MEDS ORDERED: NYSPWD TP (12:12)
[2025-02-04] MEDS ORDERED: FURO-149 PO (12:12)
[2025-02-05] MEDS ORDERED: furosemide 40mg tablet PO SCH (08:00)
== END 2025-02-04 14:50 | disposition home health service (06) | DRG 291 ==
LOC: ER 18:50 → ED HOLD 22:25 → PCU 3S 02-02 01:45
PROVIDERS: ADMIT Internal Medicine; ATTEND Family Medicine
DX: I11.0 Hypertensive heart disease with heart failure (principal); I50.33 Acute on chronic diastolic (congestive) heart failure; J96.22 Acute and chronic respiratory failure with hypercapnia; E66.2 Morbid (severe) obesity with alveolar hypoventilation; Z68.42 Body mass index [BMI] 45.0-49.9, adult; N17.9 Acute kidney failure, unspecified; Z20.822 Contact with and (suspected) exposure to COVID-19; I25.10 Atherosclerotic heart disease of native coronary artery without angina pectoris; K21.9 Gastro-esophageal reflux disease without esophagitis; G89.29 Other chronic pain; M54.9 Dorsalgia, unspecified; E11.9 Type 2 diabetes mellitus without complications; I48.91 Unspecified atrial fibrillation; E78.00 Pure hypercholesterolemia, unspecified; F32.A Depression, unspecified; F41.9 Anxiety disorder, unspecified; T50.1X6A Underdosing of loop [high-ceiling] diuretics, initial encounter; T50.2X5A Adverse effect of carbonic-anhydrase inhibitors, benzothiadiazides and other diuretics, initial encounter; Y92.238 Other place in hospital as the place of occurrence of the external cause; R35.0 Frequency of micturition; Z79.899 Other long term (current) drug therapy; Z88.0 Allergy status to penicillin; Z88.1 Allergy status to other antibiotic agents; Z88.8 Allergy status to other drugs, medicaments and biological substances; Z95.1 Presence of aortocoronary bypass graft; Z79.84 Long term (current) use of oral hypoglycemic drugs; Z79.4 Long term (current) use of insulin; Z79.02 Long term (current) use of antithrombotics/antiplatelets; Z82.49 Family history of ischemic heart disease and other diseases of the circulatory system; Z83.3 Family history of diabetes mellitus; Z91.148 Patient's other noncompliance with medication regimen for other reason; Y92.89 Other specified places as the place of occurrence of the external cause
CPT/HCPCS: 36415; 36600; 71045; 80053; 80061; 81003; 82803; 82948; 83036; 83735; 83880; 84100; 84484; 85018; 85025; 85610; 85730; 87081; 87502; 87503; 87811; 93005; 93306; 94640; 94760; 96374; 97116; 97161; 97530; 99291; A6449; G0378; J1650; J1815; J1940

== ENCOUNTER 2025-04-05 18:32 | Inpatient (IN) | payer MEDICARE, MEDICAID ==
[~2025-04-05] VITALS: Ht 172.7 cm; Wt 136.4 kg
[~2025-04-05 18:32] MED LIST changes: -AMI200T PO; +AMIO200T72 PO; +BUPR150T21 PO; -BUPR150T8 PO; +CLOP-32 PO; -CLOP75TA34 PO; -DULO60CA59 PO; +DULO60CA65 PO; -EMPA10TA PO; +EMPA25TA PO; -FURO-149 PO; +FURO40TA4 PO; -INSU100V41 SQ; -INSU100V50 SQ; +INSU200I8 SQ; -LISI5TAB22 PO; -METF-516 PO; +METF-900 PO; +SACU1TAB7 PO; +SEMA0.258 SQ; +[UNRECOGNIZED DRUG - CODE] SQ
--- NOTE | 2025-04-05 19:07 | Physician Documentation ---
History of Present Illness ~ Chief Complaint: Shortness of Breath Stated Complaint: LOW O2 Time Seen by MD: 19:04 Primary Medical Doctor: ; Dignity HPI Patient presents to the emergency room for evaluation of shortness of breath in leg swelling. Patient has history of multiple pneumonias and CHF exacerbations. History of COPD as well as CABG. Discharged recently. Over the past two days his legs have significant increase in edema leading to significant drainage from his legs left greater than right. Four days ago he also had his dog jump on in his leg and scratched it. Unknown of his leg was washed out but they did place bacitracin on it. No fevers. Increased oxygen demand with decreased exercise tolerance Medication Reconciliation Allergies: Coded Allergies: Penicillins (Verified Allergy, Severe, hives; RASH, 04/05/25) >5 years ago, hives, no treatment needed amoxicillin (Verified Allergy, Severe, hives;RASH, 04/05/25) canagliflozin (Verified Allergy, Severe, hives, 04/05/25) Scheduled Amiodarone HCl* (Amiodarone HCl*), 1 TAB PO DAILY, (Reported) Bupropion Hcl (Bupropion Xl), 1 TAB PO DAILY, (Reported) Clopidogrel Bisulfate (Plavix), 1 TAB PO DAILY, (Reported) Duloxetine HCl (Duloxetine HCl), 1 CAP PO QAM, (Reported) Empagliflozin (Jardiance), 1 TAB PO DAILY, (Reported) Ezetimibe (Zetia), 1 TAB PO DAILY, (Reported) Furosemide (Furosemide), 1 TAB PO DAILY, (Reported) Insulin Degludec (Insulin Degludec Pen (U-200)), 100 UNITS SQ DAILY, (Reported) Insulin Lispro-Aabc (Lyumjev Kwikpen U-100), 50 UNITS SQ TID, (Reported) Metformin Hcl* (Metformin ER*), 1,000 MG PO BID, (Reported) Metoprolol Tartrate (Metoprolol Tartrate), 1 TAB PO BID, (Reported) Pantoprazole Sodium (PROTONIX tablet), 1 TAB PO DAILY, (Reported) Rosuvastatin Calcium (Rosuvastatin Calcium), 1 TAB PO DAILY, (Reported) Sacubitril/Valsartan (Entresto 49 mg-51 mg Tablet), 1 TAB PO Q12H, (Reported) Semaglutide (Ozempic), 0.25 MG SQ Q7D, (Reported) Past Medical History Past Medical History: Coronary Artery Disease, Hypertension, Vascular Disease, GERD, Diabetes, Chronic Back Pain, Fibromyalgia Past Surgical History: coronary bypass surgery Patient History: FH ischemic heart disease FATHER (stroke, heart disease, HTN, CABG, diabetes), , Age: 70, Cause: Stroke GRANDFATHER OR GRANDMOTHER, , Cause: AMI (acute myocardial infarction) 2 Brothers (htn, heart attacks), , Age: 59 Alcohol Use: None Drug Use: none Lives In: Home Review of Systems ROS All review of systems negative except as per HPI Physical Exam Vital Signs: Temperature: 96.5, Source: Temporal, Heart Rate: 86, Respiratory Rate: 24, BP: 157/89, Pulse Oximetry: 74 Oxygen Flow Rate: 5.0 Physical Exam General: Patient is awake, alert, oriented x4 in no acute distress and chronically ill-appearing Head: Normocephalic and atraumatic. Eyes: Conjunctival normal. EOMI. PERRL. ENT: Mucous membranes moist. Neck: Supple, trachea is midline. Chest: Decreased lung sounds bilaterally without rales, rhonchi, or wheezes. Th ere is no accessory muscle use or retractions. Tachypneic Cardiac: RRR without murmurs, gallops, or rubs. Abd: Soft, nondistended, nontender, with normoactive bowel sounds. No guarding, rebound, or rigidity. Extremities: Severe lymphadenopathy bilateral lower extremities left greater than right. Active transudative fluids flowing out of patient's left leg. For puncture wounds in the shape of dogs nails on lateral aspect of patient's left bryson with mild oozing. No purulence. Increased erythema around his wound. Progress Results/Orders Results/Orders Orders - SANTANA ROGERS MD Electrocardiogram (04/05/25 19:15) Culture Blood (04/05/25 19:15) Chest,Single View (04/05/25 19:32) Page Hospitalist (04/05/25 21:27) Fill Out Med Reconciliation (04/05/25 21:27) Vancomycin/Ns 1 Gm Add-[place] (Vancomyc (04/05/25 22:30) Completed Orders - SANTANA ROGERS MD Electrocardiogram (04/05/25 19:15) Cbc/Diff (04/05/25 19:15) Chest,Single View (04/05/25 19:32) Procalcitonin (04/05/25 19:15) Hs Troponin I W Calculations (04/05/25 19:15) Lacticsepsis (04/05/25 19:15) BMP (04/05/25 19:34) MG (04/05/25 19:34) PBNP (04/05/25 19:34) Ua W/Microscopic, Cult If Ind (04/05/25 20:35) Furosemide Inj (Lasix Inj) (04/05/25 21:25) Sulfamethox/Trimethoprim Inj. (Bactrim I (04/05/25 22:05) Medications Received in ER Medications (Trade) Dose Ordered Sig/Milagros Route PRN Reason Start Time Stop Time Status Last Admin Dose Admin (Lasix inj) 40 mg ONCE ONCE IV 04/05/25 21:25 04/05/25 21:26 DC 04/05/25 22:16 40 MG Vital Signs 04/05/25 04/05/25 04/05/25 04/05/25 18:51 18:54 19:07 19:14 Temp 96.5 Pulse 86 84 Resp 24 28 28 B/P (MAP) 157/89 146/76 (99) Pulse Ox 75 74 90 O2 Delivery Nasal Cannula* O2 Flow Rate 5.0 5 3.0 FiO2 40 Laboratory Tests Test 04/05/25 19:18 04/05/25 19:41 04/05/25 20:35 White Blood Count 6.1 Red Blood Count 3.61 L Hemoglobin 10.5 L Hematocrit 32.8 L Mean Corpuscular Volume 90.9 Mean Corpuscular Hemoglobin 29.0 Mean Corpuscular Hemoglobin Concent 31.9 L Red Cell Distribution Width 15.3 H Platelet Count 290 Mean Platelet Volume 7.7 Neutrophils (%) (Auto) 71.0 Lymphocytes (%) (Auto) 12.8 L Monocytes (%) (Auto) 13.2 H Eosinophils (%) (Auto) 2.1 Basophils (%) (Auto) 0.9 Neutrophils # (Auto) 4.3 Lymphocytes # (Auto) 0.8 L Monocytes # (Auto) 0.8 Eosinophils # (Auto) 0.1 Basophils # (Auto) 0.1 CBC Comment Lactic Acid Level 1.3 Troponin I High Sensitivity 20 Procalcitonin < 0.05 Chemistry Comments Sodium Level 142 Potassium Level 3.6 Chloride Level 104 Carbon Dioxide Level 34.8 H Anion Gap 3 L Blood Urea Nitrogen 8 Creatinine 1.13 H Estimated GFR/1.73 m2 65 BUN/Creatinine Ratio 7.1 L Glucose Level 206 H Calcium Level 8.0 L Magnesium Level 1.8 Pro-B-Type Natriuretic Peptide 2868 H Albumin 2.1 L Urine Specimen Description Voided Urine Color Yellow Urine Clarity Clear Urine pH 6.0 Urine Specific [place] <=1.005 Urine Protein Negative Urine Glucose (UA) >=1000 H Urine Ketones Negative Urine Occult Blood Negative Urine Nitrite Negative Urine Bilirubin Negative Urine Urobilinogen 0.2 Urine Leukocyte Esterase Negative Urine RBC 0-2 Urine WBC None seen Urine Squamous Epithelial Cells None seen Urine Bacteria None seen Urine Mucus None seen Urine Culture Indicated Not ind Volume Urine Centrifuged 10 ml Urine Comment Microbiology Date/Time Source Procedure Growth Status 04/05/25 19:22 Blood Arm Left Blood Culture - Preliminary NEGATIVE (LESS THAN 24 HOURS) Resulted Medical Decision Making Findings Patient presents to the emergency room for evaluation of lower extremity edema, increased oxygen demand and redness to his left lower extremity. Differentials include but are not limited to CHF exacerbation, pneumonia, cellulitis, sepsis therefore emergent labs and imaging indicated. Patient is volume overloaded and Lasix has been initiated. Patient does have increased erythema to area of scratch in his lower extremity we will cover for cellulitis. Patient has a complicated medical history and he had not feel he would do well on outpatient basis. Departure Admitted to Inpatient Unit: yes, to hospitalist Impression: Primary Impression: CHF exacerbation Additional Impressions: Cellulitis Hypoxia Condition: Guarded Referrals: NO PRIMARY CARE PROVIDER (PCP) Signature Scribe Signature: No scribe Attestation: The note accurately reflects work and decisions made by me.Santana Rogers MD 04/05/25 21:29 SANTANA ROGERS MD April 05, 2025 19:07
--- NOTE | 2025-04-05 19:27 | ELECTROCARDIOGRAPH REPORT ---
[facility] Test Date: 2025-04-05 Test Time: 19:25:50 Pat Name: JESSIE BURGOS Department: [facility]- Patient ID: [facility]-[id number] Room: Gender: M Aws Consultant: : 1960 Requested By: DON ROWLAND Order Number: [id number] Reading MD: Dr. Jeffery Mcknight Measurements Intervals [place] Rate: 84 P: 41 VA: 170 QRS: -24 QRSD: 105 T: 116 QT: 382 QTc: 452 Interpretive Statements Sinus rhythm Borderline left axis deviation RSR' in V1 or V2, probably normal variant Nonspecific T abnrm, anterolateral leads Electronically Signed On 04-05-2025 21:43:[address] Jeffery Mcknight Please click the below link to view image of tracing.
[2025-04-05 19:31] LABS: BASOPHILS # (AUTO) 0.1 X10'3 (0-0.2); BASOPHILS % (AUTO) 0.9 % (0-1); EOSINOPHILS # (AUTO) 0.1 X10'3 (0-0.9); EOSINOPHILS % (AUTO) 2.1 % (0-6); HEMATOCRIT 32.8 % (42.0-52.0); HEMOGLOBIN 10.5 g/dl (14.0-17.9); LYMPHOCYTES # (AUTO) 0.8 X10'3 (1.1-4.8); LYMPHOCYTES % (AUTO) 12.8 % (21-51); MEAN CORPUSCULAR HGB CONC 31.9 g/dL (33.0-36.5); MEAN CORPUSCULAR VOLUME 90.9 FL (78-98); MEAN PLATELET VOLUME 7.7 FL (7.4-10.4); MONOCYTES # (AUTO) 0.8 X10'3 (0-0.9); MONOCYTES % (AUTO) 13.2 % (2-12); NEUTROPHILS # (AUTO) 4.3 X10'3 (1.8-7.7); PLATELET COUNT 290 X10'3 (140-440); RED BLOOD COUNT 3.61 X10'6 (4.70-6.10); RED CELL DISTRIBUTION WIDTH 15.3 % (11.5-14.5); WHITE BLOOD COUNT 6.1 X10'3 (4.5-11.0)
--- NOTE | 2025-04-05 19:41 | RADIOLOGY REPORT ---
CHEST RADIOGRAPH Indication: SEPSIS Technique: Single frontal view of the chest was obtained Comparison: DI CHEST,SINGLE VIEW on DOS: 03/03/25, DI CHEST,SINGLE VIEW on DOS: 02/24/25, DI CHEST,SING LE VIEW on DOS: 02/22/25, DI CHEST,SINGLE VIEW on DOS: 02/21/25, DI CHEST,SINGLE VIEW on DOS: 02/21/25 FINDINGS: Lines and Tubes: None Lungs: No focal consolidation. Mild pulmonary venous congestion. Pleura: No effusion. No pneumothorax. Cardiomediastinal contours: Cardiomegaly with median sternotomy with cardiac revascularization proced ure Bones: No acute osseous abnormality. The bony thorax demonstrate osteopenia. IMPRESSION: 1. .Cardiomegaly with median sternotomy with mild pulmonary venous congestion
[2025-04-05 20:09] LABS: ALBUMIN 2.1 G/DL (3.4-5.0); ANION GAP 3 (8-16); BLOOD UREA NITROGEN 8 MG/DL (7-18); BUN/CREATININE RATIO 7.1 (10.0-20.0); CHLORIDE 104 MMOL/L (99-107); CREATININE 1.13 MG/DL (0.60-1.10); GLUCOSE 206 MG/DL (70-104); MAGNESIUM 1.8 MG/DL (1.5-2.4); POTASSIUM 3.6 MMOL/L (3.5-5.1); PRO BRAIN NATRIURETIC PEPTIDE 2868 PG/ML (0-125); SODIUM 142 MMOL/L (135-145); TOTAL CARBON DIOXIDE 34.8 MMOL/L (24-32); eGFR 65 ML/MIN
[2025-04-05 20:41] LABS: BILIRUBIN,URINE NEGATIVE (Neg); CLARITY,URINE CLEAR (Clear); COLOR,URINE YELLOW (Yellow); GLUCOSE, URINE >=1000 mg/dl (Neg); KETONES,URINE NEGATIVE (Neg); LEUKOCYTE ESTERASE ,URINE NEGATIVE (Neg); NITRITES, URINE NEGATIVE (Neg); OCCULT BLOOD,URINE NEGATIVE (Neg); PROTEIN,URINE NEGATIVE (Neg); UROBILINOGEN,URINE 0.2 E.U/dL (0.2-1.0)
[2025-04-05 20:43] LABS: UA COLLECTION TYPE VOIDED
[2025-04-05 20:46] LABS: BACTERIA,URINE NONE SEEN /HPF (Neg); MUCUS STRANDS NONE SEEN /LPF (Neg); RBC,URINE 0-2 /HPF (0-2); SQUAMOUS EPITHELIAL CELL,UR NONE SEEN /LPF (FEW); WBC,URINE NONE SEEN /HPF (0-4)
[2025-04-05] MEDS ORDERED: sulfamethox/trimethoprim inj. 15 ML in dextrose 5% water 500ml 485 ML IV ONE ×2 (21:25→22:05)
[2025-04-05] MEDS: furosemide 10 MG/1 ML 10ml inj IV ONE (22:16)
[2025-04-05] MEDS ORDERED: vancomycin inj 1,000 MG in normal saline 250ml IV soln 250 ML IV ONE (22:25)
[2025-04-05] MEDS: vancomycin/NS 1 GM ADD-VANTAGE 250 ML IV ONE (23:04)
[2025-04-05] MEDS ORDERED: potassium Cl 40MEQ/1/2NS 520ml 520 ML IV PRN (23:40)
[2025-04-05] MEDS ORDERED: acetaminophen 325mg tablet PO PRN (23:40)
[2025-04-05] MEDS ORDERED: magnesium sulf-water 4G/100mL 100 ML IV PRN (23:40)
[2025-04-05] MEDS ORDERED: magnesium Cl slow-release 64mg tablet PO PRN (23:40)
[2025-04-05] MEDS ORDERED: potassium Cl 20 mEq SR tablet PO PRN ×2 (23:40)
[2025-04-05] MEDS ORDERED: mag hydrox/Alum hydrox/simeth 30ml oral suspension PO PRN (23:40)
[2025-04-05] MEDS ORDERED: magnesium hydroxide 30ml (MOM) UD suspension PO PRN (23:40)
[2025-04-05] MEDS ORDERED: ondansetron/PF 4mg/2ml inj IV PRN (23:40)
[2025-04-05] MEDS ORDERED: magnesium sulf-water 2g/50mL 50 ML IV PRN (23:40)
[2025-04-06] VITALS (8 sets, daily range): BP systolic 104–169; BP diastolic 57–84; PULSE 77–99; RESP 13–26; TEMP 96.9–98; O2SAT 87–91
[2025-04-06] MEDS ORDERED: glucagon, human recombinant 1mg kit SUBCUT PRN (00:10)
[2025-04-06] MEDS ORDERED: DEXTROSE 15 GM of carb/4 tabs (each vial/BOTTLE has 4 tablets) PO PRN (00:10)
[2025-04-06] MEDS ORDERED: dextrose 50%-water 50ml dispensing syringe IV PRN ×2 (00:10)
[2025-04-06 00:25] LABS: INR 1.1 INR; PROTHROMBIN TIME 11.3 SECONDS (9.0-12.0)
--- NOTE | 2025-04-06 03:13 | HISTORY AND PHYSICAL-Residence ---
History & Physical Providers to CC Resident Creating Document: TERESA MADRIGAL, RES ~ History of Present Illness Primary Medical Doctor: ; Dignity Reason for Admit\Complaint: Shortness of breath History of Present Illness The patient is a 64-year-old male with past medical history of diabetes, CHF, CAD, hypertension, COPD, YANI, presented to the ED with complaints of decreasing oxygen saturations. He uses 3 L of oxygen at home. Yesterday evening, the patient noticed that his oxygen saturations have dropped and they are ranging anywhere between 65-90%. The patient also has dyspnea on exertion. He sleeps on his side and only uses one pillow. Complaints of mild cough with no sputum production. Denies fevers, chest pain, palpitations, nausea, vomiting, abdominal pain, constipation, diarrhea, burning micturition. He does not use CPAP at night. Patient's history is also significant for a scratch on his right leg from his cat jumping on him two days back. There is no tenderness or erythema around the scratch which is above knee. He was started on vancomycin in the ED. The patient has chronic swelling of bilateral legs which is associated with erythema. Allergies: Coded Allergies: Penicillins (Verified Allergy, Severe, hives; RASH, 04/05/25) >5 years ago, hives, no treatment needed amoxicillin (Verified Allergy, Severe, hives;RASH, 04/05/25) canagliflozin (Verified Allergy, Severe, hives, 04/05/25) Home Medications Home Medications Active Reported Zetia (Ezetimibe) 10 Mg Tablet 1 Tab PO DAILY Jardiance (Empagliflozin) 25 Mg Tablet 1 Tab PO DAILY Entresto 49 mg-51 mg Tablet (Sacubitril/Valsartan) 49 Mg-51 Mg Tablet 1 Tab PO Q12H Plavix (Clopidogrel Bisulfate) 75 Mg Tablet 1 Tab PO DAILY Bupropion Xl (Bupropion HCl) 150 Mg Tab.sr.24h 1 Tab PO DAILY Metformin ER* (Metformin HCl) 500 Mg Tab.sr.24h 1,000 Mg PO BID Insulin Degludec Pen (U-200) (Insulin Degludec) 200 Unit/Ml (3 Ml) Insuln.pen 100 Units SQ DAILY Ozempic (Semaglutide) 0.25 Mg/0.368 Ml Pen.injctr 0.25 Mg SQ Q7D Donna Frankel U-100 (Insulin Lispro-Aabc) 100 Unit/Ml Insuln.pen 50 Units SQ TID Furosemide 40 Mg Tablet 1 Tab PO DAILY Amiodarone HCl* (Amiodarone HCl) 200 Mg Tablet 1 Tab PO DAILY Duloxetine HCl 60 Mg Capsule. 1 Cap PO QAM Metoprolol Tartrate 50 Mg Tablet 1 Tab PO BID Rosuvastatin Calcium 40 Mg Tablet 1 Tab PO DAILY PROTONIX tablet (Pantoprazole Sodium) 40 Mg Tablet.dr 1 Tab PO DAILY Past Medical History Past Medical History COPD, nonsmoker Heart failure with preserved ejection fraction Morbid obesity Obstructive sleep apnea Hypertension Type 2 DM CAD s/p CABG x2 and three stents - one CABG has failed as reported by the patient Past Surgical History Surgical History Comment CABG Remote history of hernia repair Family History Family History: FH ischemic heart disease FATHER (stroke, heart disease, HTN, CABG, diabetes), , Age: 70, Cause: Stroke GRANDFATHER OR GRANDMOTHER, , Cause: AMI (acute myocardial infarction) 2 Brothers (htn, heart attacks), , Age: 59 Past Social History Social History Comment Patient lives in his house with family. Ambulates using a walker. Denies smoking, alcohol or illicit drug abuse. PCP is Dr. Triplett, personal shopper is Dr. Ku, supervisor metal placing is Dr. Hernandez Smoking: Non-Smoker Alcohol Use: None Drug Use: None Lives In: Home ROS ROS Reviewed in full. Negative except for pertinent positives in HPI. Exam Vitals: Vital Signs Date Time Temp Pulse Resp B/P (MAP) Pulse Ox O2 Delivery O2 Flow Rate FiO2 04/06/25 01:50 85 04/06/25 00:10 23 160/78 (105) 91 3.0 04/05/25 18:54 Nasal Cannula* 40 04/05/25 18:51 96.5 General: Elderly male, alert and oriented x4, not in acute distress Head: Normocephalic with an atraumatic Eyes: Pupils- 3mm, reacting to light, conjunctiva- anicteric Nose and throat: No polyps, septum- normal, no mucosal ulcers Neck: Supple, no lymphadenopathy, no carotid bruit Respiratory: No use of accessory muscles of respiration, Bilateral normal vesicular breath sounds heard. No wheeze, rhochi or creps Cardiac: S1-S2 heard, rhythm regular, no gallop/murmur Abdomen: non distended, no tenderness, no organomegaly, bowel sounds - heard Extremities: Bilateral leg swelling, chronic venous congestion, erythema, no tenderness; a scratch above right knee present with no surrounding erythema or tenderness Skin: warm and dry, no rash, no purpura Neuro: No focal deficit, gross cranial nerve exam - normal Diagnostic Data Last Recorded Lab Results: 04/06/25 0541 04/06/25 0541 Diagnostic Data: Laboratory Tests Test 04/06/25 00:02 Prothrombin Time 11.3 SECONDS (9.0-12.0) INR International Normalized Ratio 1.1 INR Coagulation Comments Advance Care Planning Advanced Care plannin - 30 Minutes Additional Plan A 64-year-old male with past medical history of CAD, hypertension, DM, YANI, COPD, CHF, presented to the ED with increasing oxygen demands. He is being admitted into the hospital for further evaluation and management. Plan: Acute on chronic hypoxemic respiratory failure Possible CHF exacerbation ProBNP 2868, chest x-ray shows pulmonary venous congestion. Started the patient on IV Lasix 40 mg b.i.d. Echocardiogram from 03/10 shows LVEF of 65-70%. Continue heart failure medications after medication reconciliation is done. Daily weights, fluid restriction 1500 mL per day. Bilateral lower leg erythema Axel borders of erythema to monitor for progression. Cellulitis less likely. No leukocytosis, normal lactic acid, procalcitonin, no elevated temperatures. Follow up with ESR. Patient received IV vancomycin in the ER. Follow up with D-dimer and ultrasound venous bilateral lower extremities. Anemia of chronic disease HB 10.5 which is chronic. Continue to monitor H&H. Diabetes mellitus HB A1c 8.8. Patient takes 100 units degludec at night along with a 50 units Humalog thrice daily. Continuing the same. Closely monitor sugars four hypoglycemia. Hypertension Continue home antihypertensives after medication reconciliation is done. CAD Continue Plavix after medication reconciliation is done. Hyperlipidemia Continue rosuvastatin after medication reconciliation is done. Paroxysmal atrial fibrillation Currently in sinus rhythm. Continue amiodarone and metoprolol after medication reconciliation is done. Code Status: Full code DVT Prophylaxis: Heparin Analgesia/Sedation: Acetaminophen Lines/Tubes: PIV Nutrition: Heart healthy diet PT: Ordered Disposition: We will admit the patient into medical soto. Continue diuresis. Medication reconciliation pending. Teresa Madrigal MD Internal Medicine Resident PGY-1 Addendum I personally reviewed the chart, labs and imaging and reviewed the patient with the team. I agree with the assessment and plan as documented by the resident. Patient was seen through remote audio-visual assessment through HIPAA compliance setup. Date of Service: April 06, 2025 Billing Provider: OTTO MARTINEZ MD,TERESA BOYER, [facility] April 06, 2025 03:13 OTTO MARTINEZ MD April 06, 2025 15:49
[2025-04-06 06:17] LABS: BASOPHILS % (AUTO) 0.3 % (0-1); EOSINOPHILS # (AUTO) 0.1 X10'3 (0-0.9); EOSINOPHILS % (AUTO) 1.8 % (0-6); HEMATOCRIT 32.3 % (42.0-52.0); HEMOGLOBIN 10.6 g/dl (14.0-17.9); LYMPHOCYTES # (AUTO) 0.6 X10'3 (1.1-4.8); LYMPHOCYTES % (AUTO) 9.4 % (21-51); MEAN CORPUSCULAR HEMOGLOBIN 29.8 PG (27.0-31.0); MEAN CORPUSCULAR VOLUME 90.2 FL (78-98); MONOCYTES # (AUTO) 0.7 X10'3 (0-0.9); MONOCYTES % (AUTO) 10.7 % (2-12); NEUTROPHILS # (AUTO) 4.8 X10'3 (1.8-7.7); NEUTROPHILS % (AUTO) 77.8 % (42-75); PLATELET COUNT 302 X10'3 (140-440); RED BLOOD COUNT 3.58 X10'6 (4.70-6.10); RED CELL DISTRIBUTION WIDTH 15.1 % (11.5-14.5); WHITE BLOOD COUNT 6.2 X10'3 (4.5-11.0)
[2025-04-06 06:33] LABS: ALANINE AMINOTRANSFERASE 17 U/L (12-78); ALBUMIN 2.1 G/DL (3.4-5.0); ALBUMIN/GLOBULIN RATIO 0.5 (1.1-1.5); ALKALINE PHOSPHATASE 68 IU/L (46-116); ANION GAP 4 (8-16); ASPARTATE AMINO TRANSFERASE 13 U/L (10-37); BILIRUBIN,TOTAL 0.9 MG/DL (0.1-1.0); BLOOD UREA NITROGEN 8 MG/DL (7-18); BUN/CREATININE RATIO 7.9 (10.0-20.0); CHLORIDE 102 MMOL/L (99-107); CREATININE 1.01 MG/DL (0.60-1.10); GLUCOSE 153 MG/DL (70-104); MAGNESIUM 1.9 MG/DL (1.5-2.4); POTASSIUM 3.5 MMOL/L (3.5-5.1); SODIUM 141 MMOL/L (135-145); TOTAL CARBON DIOXIDE 35.2 MMOL/L (24-32); TOTAL PROTEIN 6.3 G/DL (6.4-8.2); eCRCL 71 ML/MIN; eGFR 74 ML/MIN
[2025-04-06] MEDS: INSULIN LISPRO 100 UNIT/ML INSULN.PEN MULTI-DOSE SQ SCH ×2 (07:00→09:41)
[2025-04-06 07:16] LABS: D-DIMER 1.08 MG/L FEU (0-0.50)
[2025-04-06] MEDS: K and/or MAG REPLACEMENT MC SCH (08:00)
[2025-04-06] MEDS: sacubitril/valsartan 49mg-51mg tablet PO SCH (08:00)
[2025-04-06] MEDS ORDERED: ipratropium/albuterol 3ml nebule NEB PRN (08:55)
[2025-04-06] MEDS: pantoprazole 40mg Tablet.DR PO SCH (09:18)
[2025-04-06] MEDS: docusate sod 100mg capsule PO SCH (09:19)
[2025-04-06] MEDS: furosemide 40mg/4ml inj IV SCH (09:19)
[2025-04-06] MEDS: atorvastatin 20mg tablet PO SCH (09:19)
[2025-04-06] MEDS: metoprolol tartrate 50mg tablet PO SCH (09:20)
[2025-04-06] MEDS: EMPAGLIFLOZIN 25 MG TABLET PO SCH (09:21)
[2025-04-06] MEDS: clopidogrel 75mg tablet PO SCH (09:21)
[2025-04-06] MEDS: heparin, porcine 5000 units/ml vial SQ SCH (09:21)
[2025-04-06] MEDS: amiodarone 200mg tablet PO SCH (09:22)
[2025-04-06] MEDS: insulin glargine (Lantus) pen - multi-dose SQ SCH (09:39)
--- NOTE | 2025-04-06 09:55 | VASCULAR REPORT ---
EXAM: VASC VL VENOUS Clinical History: Bilateral leg redness Comparison: VASC VL VENOUS on DOS: 03/01/25, VASC VL VENOUS on DOS: 03/01/24 Technique: Duplex Doppler evaluation of the deep venous systems of both lower extremities from the co mmon femoral veins to the popliteal veins including color Doppler and spectral/pulsed waveform analys is was performed. Findings: RIGHT SIDE: The common femoral vein demonstrates appropriate compressibility and waveform variability . There is compressibility/patency of the great saphenous vein at the proximal thigh . The femoral vein demonstrates appropriate compressibility and waveform variability . The deep femoral vein demonstrates appropriate compressibility and waveform variability . The popliteal vein demonstrates appropriate compressibility and waveform variability . There is color flow at the tibioperoneal trunk and in the posterior tibial vein. LEFT SIDE: The common femoral vein demonstrates appropriate compressibility and waveform variability . There is compressibility/patency of the great saphenous vein at the proximal thigh . The femoral vein demonstrates appropriate compressibility and waveform variability . The deep femoral vein demonstrates appropriate compressibility and waveform variability . The popliteal vein demonstrates appropriate compressibility and waveform variability . There is color flow at the tibioperoneal trunk and in the posterior tibial vein. Impression: 1. No right or left femoropopliteal venous thrombosis.
[2025-04-06] MEDS: acetaminophen 325mg tablet PO PRN (10:11)
--- NOTE | 2025-04-06 12:37 | PROGRESS NOTE- Residence ---
Progress Note - Resident Providers to CC Resident Creating Document: CANDI CARLSON RES ~ Antibiotic Timeout Antibiotic Ordered?: No Subjective Patient was comfortably lying on the bed with oxygen supply of 4 L/min nasal cannula, feeling his shortness of breath is getting better after making extra amount of urine this morning. Denies chest pain/discomfort/pressure, hemoptysis. He does not complain about any acute active pain and redness over the bilateral legs. Objective Vital Signs Date Time Temp Pulse Resp B/P (MAP) Pulse Ox O2 Delivery O2 Flow Rate FiO2 04/06/25 09:20 93 04/06/25 07:59 22 90 Nasal Cannula 3.0 04/06/25 06:50 97.0 169/84 (112) 04/05/25 18:54 40 Result Diagram: 04/06/25 0541 04/06/25 0541 Vitals were stable at the moment with temp 97.0 F, MI 93/minute, RR 24/minute, BP 169/84 mm Hg, pulse oximetry 90% on 3 L nasal cannula. On exam, General: Well alert, well oriented, not confused, not agitated, not in acute distress, well cooperated during the physical. HEENT: Conjunctive are pink, sclerae clear, no icterus, pupil is equal in both sides, reactive to light, no ear discharge, no pharyngeal erythema or an edema, mouth and lips are moist. Neck: Supple, no JVD, no lymphadenopathy and thyromegaly. Lungs:Equal air entry on both lungs, no additional sounds Heart: S1-S2 regular sinus rhythm and, regular rate, no gallops, no rubs, no murmurs Abdomen: No visible peristalsis, Bowel sounds present on auscultation, soft, nontender, no guarding, no rigidity Extremities: No obvious deformities, non pitting chronic redness lymphedema/chronic venous insufficiency bilaterally, capillary refill intact, able to wiggle toes both sides, peripheral pulsations are intact on both sides, a scratch about the right knee without showing any signs of inflammation at the moment. GRANULATING BLENDER: No focal neurological deficits, no motor and sensory weakness in all 4 extremities, could move all 4 extremities Musculoskeletal: No joint swelling, deformities, inflammations, and no scoliosis and back tenderness Skin: No active skin lesions and rashes Coagulation Studies Laboratory Tests Test 04/06/25 00:02 04/06/25 05:41 Prothrombin Time 11.3 SECONDS (9.0-12.0) INR International Normalized Ratio 1.1 INR Coagulation Comments D-Dimer 1.08 MG/L FEU (0-0.50) H D-Dimer Comment Assessment Assessment A 64 years old male presented with acute on chronic deoxygenation ranging around 70-90s with demanding oxygen requirement to 3L/min from the baseline 2L/min, productive cought, and PATEL with a past medical history of chronic hypercapnic hypoxic respiratory failure, YANI and hypoventilation syndrome from class 4 obesity on non compliance CPAP therapy, COPD, medical noncompliance, CHFpEF, type 2 DM, CAD s/p PTCA, CABG x 2 times and failed one time, bilateral lymphatic pedal edema and metabolic alkalosis. He was given one time dose of IV Vanc at ER for his PHx of cat scratch on the leg considering for the legs cellulitis which found to have the chronic lymphedema. Plan Plan # acute on chronic hypoxic respiratory failure from acute on chronic CHFpEF 65- 70% exacerbation -his last 2D echocardiogram on 02/22/2025 showed LVEF 65-70%, mild concentric hypertrophy, RV and LA mildly dilated, trace MR, normal pericardium no effusion. -chest x-ray support a diagnosis of acute on chronic CHF exacerbation with a mild pulmonary venous congestion along with elevated proBNP 2868 -he commented that he was taking prescribed medications regularly after discharge, has been taking p.o. Lasix 40 mg daily, was given one time dose of IV Lasix 40 mg in ER followed by 40 mg b.i.d. -daily weight measuring, low-salt diet, fluid restriction 1.5 L per day -continue CHFpEF GDMT therapy-Entresto, Jardiance, metoprolol tartrate, DAPT, Lasix # bilateral chronic lower extremities lymphedema/chronic venous insufficiency -nonspecific elevation of D-dimer 1.08 -ordered bilateral lower leg Doppler ultrasound to exclude DVT in ER, showing no right or left femoral popliteal venous thrombosis -no active signs of infections and inflammation around the cat scratch area -hold the IV antibiotics therapy # YANI/hypoventilation syndrome # class three obesity BMI 45.7 # T2 DM, HGB A1c 8.8 # Mild Protein calorie malnutrition -CPAP daily was ordered -RBS 153 -modifying his usual home insulin therapy to sc glargine 40 b.i.d., and continue sc lispro 50 units t.i.d. -monitor blood sugar to adjust insulin therapy # KACI on CKD 2-possible renal tubular stasis # normochromic normocytic anemia -his baseline was around one, creatinine 1.13 on admission -NNA probably from the CKD, needs to study iron for the possible Oral or IV iron replacement OR Erythropoietin depends on the Transferring saturation and Ferritin levels to increase overall survival # CAD status post PTCA, status post CABG # acute on chronic diastolic heart failure with preserved ejection fraction 65- 70% # History of AFib # Hyperlipidemia -continue all of his home medications appropriately after medication reconciliation done including GDMT CODE STATUS: Full code DVT prophylaxis: Sc heparin 5000 units b.i.d. Analgesia/sedation: Acetaminophen Lines/tubes: Peripheral IV GI prophylaxis: Pantoprazole Nutrition: 75 g carb controlled diet with Heart healthy Prognosis: Guarded Disposition: Continue medical management including GDMT, PT eval and DC plan possible rehab. Resident MD attestation: Patient was seen, examined and discussed with attending MD, Dr. Leda CARLSON MD Internal Medicine Resident, PGY2 [facility] Date of Service: April 06, 2025 Billing Provider: HUBERT AMBROSE MD Common Visit Codes: [id number] INP/OBS CARE(HIGH) CANDI CARLSON RES April 06, 2025 12:37 HUBERT AMBROSE MD April 06, 2025 18:43
[2025-04-06] MEDS: DEXTROSE 15 GM of carb/4 tabs (each vial/BOTTLE has 4 tablets) PO PRN (18:04)
[2025-04-06] MEDS ORDERED: insulin glargine (Lantus) pen - multi-dose SQ SCH (21:00)
[2025-04-07] VITALS (11 sets, daily range): BP systolic 115; BP diastolic 55; PULSE 76–85; RESP 16–26; TEMP 97.5; O2SAT 83–99
[2025-04-07 06:36] LABS: BASOPHILS # (AUTO) 0.1 X10'3 (0-0.2); BASOPHILS % (AUTO) 0.9 % (0-1); EOSINOPHILS # (AUTO) 0.1 X10'3 (0-0.9); EOSINOPHILS % (AUTO) 1.7 % (0-6); HEMATOCRIT 31.8 % (42.0-52.0); HEMOGLOBIN 10.5 g/dl (14.0-17.9); LYMPHOCYTES # (AUTO) 0.8 X10'3 (1.1-4.8); LYMPHOCYTES % (AUTO) 11.6 % (21-51); MEAN CORPUSCULAR HEMOGLOBIN 29.6 PG (27.0-31.0); MEAN CORPUSCULAR HGB CONC 32.9 g/dL (33.0-36.5); MEAN PLATELET VOLUME 7.8 FL (7.4-10.4); MONOCYTES # (AUTO) 0.8 X10'3 (0-0.9); MONOCYTES % (AUTO) 12.4 % (2-12); NEUTROPHILS # (AUTO) 4.8 X10'3 (1.8-7.7); NEUTROPHILS % (AUTO) 73.4 % (42-75); PLATELET COUNT 346 X10'3 (140-440); RED BLOOD COUNT 3.53 X10'6 (4.70-6.10); RED CELL DISTRIBUTION WIDTH 15.2 % (11.5-14.5); WHITE BLOOD COUNT 6.5 X10'3 (4.5-11.0)
[2025-04-07 06:56] LABS: ALANINE AMINOTRANSFERASE 14 U/L (12-78); ALBUMIN/GLOBULIN RATIO 0.5 (1.1-1.5); ALKALINE PHOSPHATASE 68 IU/L (46-116); ANION GAP 5 (8-16); ASPARTATE AMINO TRANSFERASE 7 U/L (10-37); BILIRUBIN,TOTAL 0.8 MG/DL (0.1-1.0); BLOOD UREA NITROGEN 11 MG/DL (7-18); BUN/CREATININE RATIO 10.6 (10.0-20.0); CALCIUM 8.7 MG/DL (8.5-10.1); CHLORIDE 100 MMOL/L (99-107); CREATININE 1.04 MG/DL (0.60-1.10); GLUCOSE 89 MG/DL (70-104); POTASSIUM 3.6 MMOL/L (3.5-5.1); SODIUM 141 MMOL/L (135-145); TOTAL CARBON DIOXIDE 36.3 MMOL/L (24-32); TOTAL PROTEIN 6.2 G/DL (6.4-8.2); eCRCL 69 ML/MIN; eGFR 72 ML/MIN
[2025-04-07] MEDS: INSULIN LISPRO 100 UNIT/ML INSULN.PEN MULTI-DOSE SQ SCH (09:00)
--- NOTE | 2025-04-07 09:01 | RADIOLOGY REPORT ---
EXAM: DI CHEST,SINGLE VIEW Indication: SOB Technique: Single frontal view of the chest was obtained Comparison: DI CHEST,SINGLE VIEW on DOS: 04/05/25, DI CHEST,SINGLE VIEW on DOS: 03/03/25, DI CHEST,SING LE VIEW on DOS: 02/24/25, DI CHEST,SINGLE VIEW on DOS: 02/22/25, DI CHEST,SINGLE VIEW on DOS: 02/21/25 FINDINGS: Lines and Tubes: None Lungs: Pulmonary vascular congestion. Pleura: Trace left pleural effusion. No pneumothorax. Cardiomediastinal contours: Cardiomegaly. Bones: No acute osseous abnormality. IMPRESSION: Cardiomegaly with pulmonary vascular congestion and trace left pleural effusion.
[2025-04-07] MEDS: albuterol 2.5 MG/3 ML nebule NEB SCH (10:57)
[2025-04-07] MEDS: ipratropium/albuterol 3ml nebule NEB SCH (10:58)
[2025-04-07 11:29] LABS: ABG BASE EXCESS 11.1 mmol/L (-2.0-3.0); ABG HCO3 36.2 mmol/L (21.0-28.0); ABG OXYGEN SATURATION 79.2 % (94.0-98.0); ABG PCO2 (T) 50.2 mmHg (35.0-48.0); ABG PH (T) 7.476 (7.350-7.450); ABG PO2 (T) 43.3 mmHg (83.0-108.0); ALLEN'S TEST POSITIVE; FCOHb 1.7 % (0.5-1.5); FHHb 20.4 % (0.0-5.0); FLOW 6 L/min; FMetHb 0.3 % (0.0-1.5); FO2Hb 77.6 % (94.0-98.0); MODE NASAL CANNULA; TOTAL HEMOGLOBIN 11.8 G/dl (13.5-17.5)
[2025-04-07] MEDS ORDERED: albuterol 2.5 MG/3 ML nebule NEB PRN (12:15)
--- NOTE | 2025-04-07 17:42 | CONSULTATION REPORT ---
VASHTI DANIELS Martha CARPET INSTALLATION SPECIALIST 04/07/25 174: History of Present Illness Providers to CC CC: HODAN WHITE MD ~ Reason for Admit\Admit Dx: Cardiology consultation Refering MD: ; Dignity History of Present Illness This is a 64-year-old male with past medical history significant for coronary artery disease status post CABG x2 in 2022 with NGUYEN to LAD and SVG to OM, hypertension, hyperlipidemia, diabetes, fibromyalgia, sleep apnea noncompliant with CPAP. He has had longstanding heart failure with preserved ejection fraction, chronic venous insufficiency with venous stasis dermatitis, morbid obesity. Have postoperative atrial fibrillation and has remained on amiodarone since his procedure in 2022. Patient does not believe he has been going in and out of atrial fibrillation. No palpitations. Patient presented with increased shortness for breath and lower extremity edema. He complains of fatigue. Presented with significant hypoxia and is on 6 L via nasal cannula currently. He has been noncompliant with his CPAP for about the past nine years and currently is not utilizing his CPAP at night. He is sleeping in a chair. Otherwise, no orthopnea while sleeping in his chair and denies PND. No chest pain or pressure. Currently, significant shortness for breath with minimal exertion and NYHA class three symptoms. Allergies: Coded Allergies: Penicillins (Verified Allergy, Severe, hives; RASH, 04/05/25) >5 years ago, hives, no treatment needed amoxicillin (Verified Allergy, Severe, hives;RASH, 04/05/25) canagliflozin (Verified Allergy, Severe, hives, 04/05/25) Home Medications Home Medications Active Reported Zetia (Ezetimibe) 10 Mg Tablet 1 Tab PO DAILY Jardiance (Empagliflozin) 25 Mg Tablet 1 Tab PO DAILY Entresto 49 mg-51 mg Tablet (Sacubitril/Valsartan) 49 Mg-51 Mg Tablet 1 Tab PO Q12H Plavix (Clopidogrel Bisulfate) 75 Mg Tablet 1 Tab PO DAILY Bupropion Xl (Bupropion HCl) 150 Mg Tab.sr.24h 1 Tab PO DAILY Metformin ER* (Metformin HCl) 500 Mg Tab.sr.24h 1,000 Mg PO BID Insulin Degludec Pen (U-200) (Insulin Degludec) 200 Unit/Ml (3 Ml) Insuln.pen 100 Units SQ DAILY Ozempic (Semaglutide) 0.25 Mg/0.368 Ml Pen.injctr 0.25 Mg SQ Q7D Donna Frankel U-100 (Insulin Lispro-Aabc) 100 Unit/Ml Insuln.pen 50 Units SQ TID Furosemide 40 Mg Tablet 1 Tab PO DAILY Amiodarone HCl* (Amiodarone HCl) 200 Mg Tablet 1 Tab PO DAILY Duloxetine HCl 60 Mg Capsule. 1 Cap PO QAM Metoprolol Tartrate 50 Mg Tablet 1 Tab PO BID Rosuvastatin Calcium 40 Mg Tablet 1 Tab PO DAILY PROTONIX tablet (Pantoprazole Sodium) 40 Mg Tablet.dr 1 Tab PO DAILY Past Medical History Medical History Comment COPD? Obstructive sleep apnea noncompliant with CPAP Chronic venous stasis Coronary artery disease status post PCI in the past and CABG x2 Diabetes mellitus with last hemoglobin A1c 8.8 February 14, 2025 Heart failure with preserved ejection fraction Postoperative atrial fibrillation Fibromyalgia Past Surgical History Surgical History Comment CABG x2 as noted above Coronary stenting Hernia repair Past Family History Family History: FH ischemic heart disease FATHER (stroke, heart disease, HTN, CABG, diabetes), , Age: 70, Cause: Stroke GRANDFATHER OR GRANDMOTHER, , Cause: AMI (acute myocardial infarction) 2 Brothers (htn, heart attacks), , Age: 59 Past Social History Social History Comment No current alcohol, smoking or drug abuse. Physical Exam Last Vital Signs Recorded: RN Vital Signs have been reviewed: Yes, Temperature: 97.5, Source: Oral, Heart Rate: 77, Respiratory Rate: 16, BP: 151/55, Pulse Oximetry: 91, Weight: 136.360 Physical Exam General: Awake, alert, oriented. No apparent distress. He is speaking in full sentences. Respiratory: Lungs are clear and diminished to auscultation bilaterally. Chest: Normal shape and size. No accessory muscle use. Cardiovascular: Regular rate and rhythm. S1-S2. No murmur, gallop, rub. Gastrointestinal: Abdomen is soft, large. Nontender to palpation. Bowel sounds present. Extremities: No lower extremity edema, cyanosis or clubbing. Neurologic: Alert and oriented x4. Nonfocal Psychiatric: Normal mood and affect. Skin: Normal color. Warm and dry. Review of Systems ROS Patient complains of shortness for breath, dyspnea on exertion, lower extremity edema, fatigue. Otherwise, review of systems negative except specifically documented in HPI. Results Echocardiogram Echocardiogram Conclusion Normal LV size and function. Mild concentric hypertrophy. LVEF is 65-70%. Right ventricle is mildly dilated with adequate function. Left atrium is moderately dilated. Unchanged from previous echo Trileaflet AV appears mildly sclerotic without stenosis. Trace insufficiency. Unchanged from previous echo. Mild mitral annular calcification without stenosis. Trace regurgitation. Unchanged from previous echo The tricuspid valve is normal in structure with trace insufficiency. Unchanged from previous echo Normal pericardium. No effusion. Dictated by:NO GLOVER MD Dictation date and time:02/22/251851 Diagram Lab Result Diagram: 04/07/25 0610 04/07/25 0610 Assessment/Plan Additional Plan This is a 64-year-old male who presents secondary to shortness for breath and edema. The following is his problem list: Acute hypoxic respiratory failure Likely multifactorial with heart failure with preserved ejection fraction and obstructive sleep apnea/questionable COPD --continue Lasix with strict intake and output. Consider increase of home Lasix from 40 mg daily to 40 mg b.i.d. temporarily pending follow up. --okay to continue Entresto, Jardiance, metoprolol Coronary artery disease status post CABG No complaints of chest pain --recommend high-intensity statin to keep LDL less than 55. Heart healthy diet and weight loss, tight management of type 2 diabetes keeping hemoglobin A1c less than seven. Optimal blood pressure control recommended. Chronic lower extremity edema with chronic venous insufficiency Recommend keeping legs elevated, low-sodium diet, Lasix as above. Encouraged use of his compression stockings. Poorly controlled type 2 diabetes with hemoglobin A1c 8.8 --management per hospitalist Obstructive sleep apnea and possible obesity hypoventilation syndrome Has been noncompliant with CPAP for about the past nine years Now more willing to comply with ordered CPAP. --we will need repeat outpatient sleep study History of atrial fibrillation Unclear if he is continuing to go in and out of atrial fibrillation or if this is simply postoperative atrial fibrillation. --recommend discontinuing amiodarone if possible. He will follow up with our office to discuss further. Obesity BMI 45.7 Supervising MD Supervising Physician: NO Simeon MD 04/07/251817: History of Present Illness Providers to CC CC: HODAN WHITE MD Allergies: Coded Allergies: Penicillins (Verified Allergy, Severe, hives; RASH, 04/05/25) >5 years ago, hives, no treatment needed amoxicillin (Verified Allergy, Severe, hives;RASH, 04/05/25) canagliflozin (Verified Allergy, Severe, hives, 04/05/25) Past Family History Family History: FH ischemic heart disease FATHER (stroke, heart disease, HTN, CABG, diabetes), , Age: 70, Cause: Stroke GRANDFATHER OR GRANDMOTHER, , Cause: AMI (acute myocardial infarction) 2 Brothers (htn, heart attacks), , Age: 59 Results Diagram Lab Result Diagram: 04/07/25 0610 04/07/25 0610 Assessment/Plan Additional Plan Agree with note by CARPET INSTALLATION SPECIALIST. VASHTI DANIELS NP April 07, 2025 17:42 NO GLOVER MD April 07, 2025 18:18
--- NOTE | 2025-04-07 17:48 | PROGRESS NOTE- Residence ---
Progress Note - Resident Providers to CC Resident Creating Document: SCOTTY CALDERON, RES ~ Central Line/PICC still needed: No Vora-Non Protocol Vora Indications Met/Not Met: F/C Indications Not Met Antibiotic Timeout Antibiotic Ordered?: No Subjective Patient appeared tachypneic. He states that his breathing has not significantly improved. Due to his nasal congestion, he did not use the overnight BiPAP. at bedside, inquired about following up with Dr. Singh as she reported that they were working him up for a possible pacemaker placement in view of his holter monitor that revealed bradycardia. Patient reported today that he had used his CPAP at home about 10 years ago and only used it one year initially when he was diagnosed with sleep apnea but has not ever used his CPAP since. Objective Vital Signs Date Time Temp Pulse Resp B/P (MAP) Pulse Ox O2 Delivery O2 Flow Rate FiO2 04/07/25 16:14 91 6.0 04/07/25 16:14 77 16 04/07/25 11:06 Nasal Cannula 04/07/25 10:58 40 04/07/25 02:00 97.5 115/55 (75) Result Diagram: 04/07/25 0610 04/07/25 0610 General: Awake and Alert, no acute distress. HEENT: Conjunctiva pink, Sclera clear, Mucus Membranes moist. Neck: Increased neck size Resp: Tachypneic. Bilateral air entry present with clear breath sounds, very fine crepitations in the bilateral basilar lobes on careful auscultation Heart: Regular Rate and rhythm, normal S1 and S2 without murmur, rub or gallop. Abdomen: Obese, soft, nontender, bowel sounds present Extremities: Diffuse chronic venous stasis changes on bilateral lower limbs. Increased sensitivity of the bilateral lower limbs. There is one to 2+ edema and erythema but no warmth or tenderness. Skin: Warm and Dry. Coagulation Studies Laboratory Tests Test 04/06/25 00:02 04/06/25 05:41 Prothrombin Time 11.3 SECONDS (9.0-12.0) INR International Normalized Ratio 1.1 INR Coagulation Comments D-Dimer 1.08 MG/L FEU (0-0.50) H D-Dimer Comment Assessment Assessment A 64 years old male presented with acute on chronic deoxygenation ranging around 70-90s with demanding oxygen requirement to 3L/min from the baseline 2L/min, productive cought, and PATEL with a past medical history of chronic hypercapnic hypoxic respiratory failure, YANI and hypoventilation syndrome from class 4 obesity on non compliance CPAP therapy, COPD, medical noncompliance, CHFpEF, type 2 DM, CAD s/p PTCA, CABG x 2 times and failed one time, bilateral lymphatic pedal edema and metabolic alkalosis. He was given one time dose of IV Vanc at ER for his PHx of cat scratch on the leg considering for the legs cellulitis which found to have the chronic lymphedema. Plan Plan 1. Acute on chronic hypoxic respiratory failure: Multifactorial/differential- alveolar disease induced/interstitial lung disease induced/COPD exacerbation induced/CHF exacerbation ABG reveals: Primary metabolic alkalosis with compensated respiratory acidosis -his last 2D echocardiogram on 02/22/2025 showed LVEF 65-70%, mild concentric hypertrophy, RV and LA mildly dilated, trace MR, normal pericardium no effusion. -chest x-ray support a diagnosis of acute on chronic CHF exacerbation with a mild pulmonary venous congestion along with elevated proBNP 2868 -he commented that he was taking prescribed medications regularly after discharge, has been taking p.o. Lasix 40 mg daily, was given one time dose of IV Lasix 40 mg in ER followed by 40 mg b.i.d. -daily weight measuring, low-salt diet, fluid restriction 1.5 L per day -continue CHFpEF GDMT therapy-Entresto, Jardiance, metoprolol tartrate, DAPT, Lasix 04/07/2025: No significant improvement on chest x-ray when compared to 03/10- standard multifocal opacities noted RT eval and treat. Duo nebs q.4 scheduled and albuterol q.2h p.r.n.. Incentive spirometry q.1 hour when awake. Mucinex to increased expectoration at 600 mg b.i.d.. No significant output noted with the Lasix 40 mg b.i.d.. We will closely monitor I&O tomorrow as well, if the patient has no improvement, we will decrease to 40 mg daily Ongoing elevation ESR and CRP. Continue trending. Repeat procalcitonin in a.m. Recommend outpatient evaluation with a quencher operator/a V/Q scan to identify underlying ventilation perfusion deficits/DLCO/PFT 2. Bilateral chronic lower extremities lymphedema/chronic venous insufficiency -nonspecific elevation of D-dimer 1.08 -ordered bilateral lower leg Doppler ultrasound to exclude DVT in ER, showing no right or left femoral popliteal venous thrombosis -no active signs of infections and inflammation around the cat scratch area -hold the IV antibiotics therapy 3. YANI/hypoventilation syndrome Class three obesity BMI 45.7 Possibility of cor pulmonale low- RVSP only at 32 mmHg Recommend increase compliance with CPAP Outpatient pulmonology evaluation 4. Type 2 diabetes mellitus Mild Protein calorie malnutrition -modifying his usual home insulin therapy to sc glargine 40 b.i.d., and continue sc lispro 50 units t.i.d. -monitor blood sugar to adjust insulin therapy 5. CKD stage 2: KACI ruled out Continue monitoring CMP 6. Normochromic normocytic anemia Follow iron studies 7. CAD status post PTCA, status post CABG acute on chronic diastolic heart failure with preserved ejection fraction 65-70% History of AFib Hyperlipidemia -continue all of his home medications appropriately after medication reconciliation done including GDMT 8. Prior history of bradycardia: Consulted Dr. Singh as per family's request Awaiting recommendations CODE STATUS: Full code DVT prophylaxis: Sc heparin 5000 units b.i.d. Analgesia/sedation: Acetaminophen Lines/tubes: Peripheral IV GI prophylaxis: Pantoprazole Nutrition: 75 g carb controlled diet with Heart healthy Prognosis: Guarded Disposition: Continue medical management including GDMT, PT eval and DC plan possible rehab. Scotty Calderon PGY2, Internal medicine resident Addendum Current updated medical condition labs and diagnostic study and care plan discussed in visit in presence of patient's today. All questions and concerns answered to the best of my professional medical knowledge. They were encouraged to to get answer for their cardiac concens questions from Dr. Singh. Cardiology consult requested from on-call electronics specialist Dr. Price in [facility] we will evaluate the patient for Dr. singh Date of Service: April 07, 2025 Billing Provider: HUBERT AMBROSE MD Common Visit Codes: [id number] INP/OBS CARE(HIGH) SCOTTY CALDERON, MIKE April 07, 2025 17:47 HBUERT AMBROES MD April 07, 2025 18:59
[2025-04-07] MEDS: guaiFENesin ER 600mg tablet PO SCH (23:22)
[2025-04-08 03:09] VITALS: PULSE 71; RESP 20; O2SAT 93
[2025-04-08 06:30] VITALS: O2SAT 93
[2025-04-08 06:46] LABS: BASOPHILS # (AUTO) 0.1 X10'3 (0-0.2); BASOPHILS % (AUTO) 0.8 % (0-1); EOSINOPHILS # (AUTO) 0.2 X10'3 (0-0.9); EOSINOPHILS % (AUTO) 2.6 % (0-6); HEMATOCRIT 32.6 % (42.0-52.0); HEMOGLOBIN 10.4 g/dl (14.0-17.9); LYMPHOCYTES # (AUTO) 0.6 X10'3 (1.1-4.8); LYMPHOCYTES % (AUTO) 9.8 % (21-51); MEAN CORPUSCULAR HEMOGLOBIN 28.7 PG (27.0-31.0); MEAN CORPUSCULAR HGB CONC 31.8 g/dL (33.0-36.5); MEAN CORPUSCULAR VOLUME 90.3 FL (78-98); MEAN PLATELET VOLUME 8.1 FL (7.4-10.4); MONOCYTES # (AUTO) 0.8 X10'3 (0-0.9); MONOCYTES % (AUTO) 11.7 % (2-12); NEUTROPHILS # (AUTO) 4.9 X10'3 (1.8-7.7); NEUTROPHILS % (AUTO) 75.1 % (42-75); PLATELET COUNT 351 X10'3 (140-440); RED BLOOD COUNT 3.61 X10'6 (4.70-6.10); RED CELL DISTRIBUTION WIDTH 15.1 % (11.5-14.5); WHITE BLOOD COUNT 6.6 X10'3 (4.5-11.0)
[2025-04-08 08:00] VITALS: RESP 22; O2SAT 92
[2025-04-08 08:24] LABS: ALANINE AMINOTRANSFERASE 14 U/L (12-78); ALBUMIN/GLOBULIN RATIO 0.4 (1.1-1.5); ALKALINE PHOSPHATASE 70 IU/L (46-116); ANION GAP 6 (8-16); ASPARTATE AMINO TRANSFERASE 12 U/L (10-37); BILIRUBIN,TOTAL 0.8 MG/DL (0.1-1.0); BLOOD UREA NITROGEN 17 MG/DL (7-18); BUN/CREATININE RATIO 14.2 (10.0-20.0); C-REACTIVE PROTEIN 8.21 MG/DL (0.0-0.5); CALCIUM 8.6 MG/DL (8.5-10.1); CHLORIDE 98 MMOL/L (99-107); FERRITIN 202 NG/ML (26-388); GLUCOSE 157 MG/DL (70-104); MAGNESIUM 2.2 MG/DL (1.5-2.4); POTASSIUM 4.2 MMOL/L (3.5-5.1); SODIUM 139 MMOL/L (135-145); TOTAL CARBON DIOXIDE 34.9 MMOL/L (24-32); TOTAL PROTEIN 6.5 G/DL (6.4-8.2); eCRCL 60 ML/MIN; eGFR 61 ML/MIN
[2025-04-08 08:26] VITALS: PULSE 74; RESP 24; O2SAT 92
[2025-04-08 10:05] VITALS: BP_SYST 138; PULSE 74
[2025-04-08] MEDS: INSULIN LISPRO 100 UNIT/ML INSULN.PEN MULTI-DOSE SQ SCH (14:18)
--- NOTE | 2025-04-08 15:09 | DISCHARGE SUMMARY-Residence ---
Discharge Summary Providers to CC Resident Creating Document: CANDI CARLSON, RES ~ Discharge Summary Admission Diagnosis: CHF exacerbation, cellulitis Hospital Course DATE OF ADMISSION: 04/05/2025 DATE OF DISCHARGE: 04/08/2025 Discharge Diagnosis\Comment: # acute on chronic hypoxic respiratory failure from acute on chronic CHFpEF 65- 70% exacerbation # bilateral chronic lower extremities lymphedema/chronic venous insufficiency# YANI/hypoventilation syndrome # class three obesity BMI 45.7 # T2 DM, HGB A1c 8.8 # Mild Protein calorie malnutrition # KACI on CKD 2-possible renal tubular stasis # normochromic normocytic anemia # CAD status post PTCA, status post CABG # acute on chronic diastolic heart failure with preserved ejection fraction 65- 70% # History of AFib # Hyperlipidemia Operations\Procedures: None Consultants: Dr Price's team, cardiology Complications: None Condition on DC: Stable Discharge Summary: A 64 years old male presented with acute on chronic deoxygenation ranging around 70-90s with demanding oxygen requirement to 3L/min from the baseline 2L/min, productive cought, and PATEL with a past medical history of chronic hypercapnic hypoxic respiratory failure, YANI and hypoventilation syndrome from class 4 obesity on non compliance CPAP therapy, COPD, medical noncompliance, CHFpEF, type 2 DM, CAD s/p PTCA, CABG x 2 times and failed one time, bilateral lymphatic pedal edema and metabolic alkalosis. He was given one time dose of IV Vanc at ER for his PHx of cat scratch on the leg considering for the legs cellulitis which found to have the chronic lymphedema. Hospital course: He was admitted for his acute on chronic hypoxic and hypercapnic respiratory failure from the chronic congestive heart failure with a preserved ejection fraction exacerbation and noncompliance CPAP application at home. He was given IV Lasix 40 mg b.i.d. for his elevated proBNP 2868 with the active heart failure symptoms and evidences of chest x-ray with mild pulmonary venous congestion. His last echocardiogram on 02/22/2025 showed LVEF 65-70%, mild concentric hypertrophy, RV in LA mildly dilated, trace MR normal pericardium, no effusion. Daily weight measuring low-salt diet and fluid restriction 1.5 L per day for his heart failure exacerbation were applied during hospitalization. Cardiology was consulted for his CHF components and recommended to hold Amiodarone and Up the dosage of IV Lasix 40 mg into BID until further noticed by Cardiology follow up in the outpatient setting and LDL goal of <55 with high intensity statin. Continue all of his home medications CHFpEF GDMT therapy with EntrestoHafsad iance, metoprolol tartrate and DAPT, Lasix. For the possible involvement of COPD exacerbation component, we will supported his respiration with the DuoNeb q.2 hours PRN, insensitive spirometry, Mucinex to increase his expectoration with 600 mg b.i.d.. BiPAP/CPAP therapy was provided at nighttime throughout the hospitalization. For his bilateral chronic lower extremities lymphedema/chronic venous insufficiency dermatitis were managed with supportive care, exclude out the possible diagnosis of DVT by doing bilateral lower leg Doppler ultrasound which showed no tdiax-dl-ygyz femoral popliteal venous thrombosis. His BMI we will is 45.7, he was classified with class three obesity. Possible involvement of YANI and HVS which should be managed with Pulmonlogist at the outpatient setting and encouraged with the compliance of CPAP therapy. He had a hard time control his blood sugar on the last admission even on the at home insulin therapy( sc glargine 100 units nighttime, sc lispro 50 units after each meal, and sliding scale insulin). Hence, we upgraded his home insulin with sc glargine 40 units BID, sc lispro 30 units after each meal, and sliding scale insulin for his low RBS during this time admission. Unfortunately, his intake was lesser than expected and downgraded to Glargine 40 units daily, and 15 units of Lispro after each, and low dose sliding scale insulin. All of his home medications were reviewed and reconciled , continue appropriately during hospitalization. DVT prophylaxis was achieved with sc heparin 5000 units b.i.d., GI cover with pantoprazole, he was provided with 75 g carb controlled and a heart healthy diet during hospitalization. All of his concerns and questions were answered with the best knowledge of our team before he was discharged to rehab today. Today, all of his labs were review WNL with a WBC 6.6, hemoglobin 10.4, hematocrit 32.6, platelet count 251, serum sodium 139, potassium 4.2, chloride 98, BUN 17 and creatinine 1.2, normal iron profile, CRP 8.21, RBS around 140s. All of his vitals were stable at the moment with WV 74/minute, RR 24/minute, BP 115/55 mm Hg, pulse oximetry 92% on nasal cannula 5 L/min. On examination, General: Well alert, well oriented, not confused, not agitated, not in acute distress, well cooperated during the physical. HEENT: Conjunctive are pink, sclerae clear, no icterus, pupil is equal in both sides, reactive to light, no ear discharge, no pharyngeal erythema or an edema, mouth and lips are moist. Neck: Supple, no JVD, no lymphadenopathy and thyromegaly. Lungs:Equal air entry on both lungs, improving fine crepitations and bilateral basal crackles. Heart: S1-S2 regular sinus rhythm and, regular rate, no gallops, no rubs, no murmurs Abdomen: No visible peristalsis, Bowel sounds present on auscultation, soft, nontender, no guarding, no rigidity Extremities: No obvious deformities, non pitting chronic redness lym phedema/chronic venous insufficiency bilaterally, capillary refill intact, able to wiggle toes both sides, peripheral pulsations are intact on both sides, a scratch about the right knee without showing any signs of inflammation at the moment. [employer]: No focal neurological deficits, no motor and sensory weakness in all 4 extremities, could move all 4 extremities Musculoskeletal: No joint swelling, deformities, inflammations, and no scoliosis and back tenderness Skin: No active skin lesions and rashes, chronic bilateral leg venous stasis dermatitis/lymphedema. * His oxygen was ranging between 80s to 90s on 5L/min Nasal cannula oxygen supply and currently on the Bipap/ Cpap therapy* He was discharged to rehab today with the list of medications: DuoNeb q.4 hours as needed P.o. Plavix 75 mg daily SCT might 10 mg daily Rosuvastatin 40 mg daily Metoprolol tartrate 50 mg b.i.d. Entresto 49 mg-51 mg b.i.d. Bupropion 150 mg daily Duloxetine 60 mg daily Furosemide 40 mg b.i.d. Pantoprazole 40 mg daily Ozempic 0.25 mg as Q cute seven day Sc insulin glargine 40 units daily Sc lispro 15 units after each meal Jardiance 25 mg daily Discharge instructions: -Please follow up in Dr. Ku's office. Please make sure to discuss your paroxysmal atrial fibrillation in need for amiodarone with him. Also, recommend referral for outpatient sleep study. -return to the ER for any emergecy situation inclduing progressive shortness of breath, chest pain or pressure, passing out, palpitations intolerable and progressive uncontroled one, etc -PCP and Pulmonology and Cardiology follow up in 1-2 weeks after discharge -Compliance with medications and Cpap at night -breathing exercise -baseline oxygen is maintaining Spo2 89-92% on 5L/min VT Resident attestation: Patient was seen, examined and discussed with attending MD, Dr. Leda CARLSON MD Internal Medicine Resident, PGY2 [facility] *Problems/Diagnosis: (1) (HFpEF) heart failure with preserved ejection fraction Status: Resolved (2) Venous stasis dermatitis Status: Chronic (3) Acute hypoxic on chronic hypercapnic respiratory failure Status: Resolved (4) Diabetes mellitus Status: Chronic Total Time Spent on D/C: > 30 Minutes Date of Service: April 08, 2025 Billing Provider: HUBERT AMBROSE MD Common Visit Codes: 86671-BKS/OBS DISCH DAY >30min CANDI CARLSON RES April 08, 2025 15:03 HUBERT AMBROSE MD April 08, 2025 20:29
[2025-04-09] MEDS ORDERED: insulin glargine (Lantus) pen - multi-dose SQ SCH (08:00)
== END 2025-04-08 16:18 | DRG 291 ==
LOC: ER 18:33 → ED HOLD 22:42 → PCU 3S 04-06 01:15
PROVIDERS: ADMIT Internal Medicine Pulmonary Disease; ATTEND Internal Medicine
PROC: 5A09357 Assistance with Respiratory Ventilation, Less than 24 Consecutive Hours, Continuous Positive Airway Pressure (ICD-10-PCS; principal; 2025-04-07)
DX: I13.0 Hypertensive heart and chronic kidney disease with heart failure and stage 1 through stage 4 chronic kidney disease, or unspecified chronic kidney disease (principal); I50.33 Acute on chronic diastolic (congestive) heart failure; J96.21 Acute and chronic respiratory failure with hypoxia; N17.0 Acute kidney failure with tubular necrosis; Z68.42 Body mass index [BMI] 45.0-49.9, adult; E44.1 Mild protein-calorie malnutrition; E87.4 Mixed disorder of acid-base balance; E78.5 Hyperlipidemia, unspecified; G47.33 Obstructive sleep apnea (adult) (pediatric); I25.10 Atherosclerotic heart disease of native coronary artery without angina pectoris; I87.2 Venous insufficiency (chronic) (peripheral); G89.29 Other chronic pain; K21.9 Gastro-esophageal reflux disease without esophagitis; M54.9 Dorsalgia, unspecified; J44.9 Chronic obstructive pulmonary disease, unspecified; D63.8 Anemia in other chronic diseases classified elsewhere; I48.0 Paroxysmal atrial fibrillation; E66.813 Obesity, class 3; N18.2 Chronic kidney disease, stage 2 (mild); E11.22 Type 2 diabetes mellitus with diabetic chronic kidney disease; E11.65 Type 2 diabetes mellitus with hyperglycemia; Z79.899 Other long term (current) drug therapy; Z82.3 Family history of stroke; Z82.49 Family history of ischemic heart disease and other diseases of the circulatory system; Z83.3 Family history of diabetes mellitus; Z95.1 Presence of aortocoronary bypass graft; Z95.5 Presence of coronary angioplasty implant and graft; Z88.0 Allergy status to penicillin; Z88.1 Allergy status to other antibiotic agents; Z91.199 Patient's noncompliance with other medical treatment and regimen due to unspecified reason
CPT/HCPCS: 36415; 36600; 71045; 80048; 80053; 81001; 82728; 82803; 82948; 83540; 83605; 83735; 83880; 84145; 84466; 84484; 85018; 85025; 85379; 85610; 85651; 86140; 87040; 87081; 93005; 93970; 94640; 94660; 94760; 96365; 96366; 96375; 97161; 97530; 99285; A4615; A4620; A6250; A6590; G0378; J1644; J1815; J1938; J1940; J3370

== ENCOUNTER 2025-11-10 13:40 | Emergency (ER) | payer MEDICARE, MEDICAID ==
[~2025-11-10] VITALS: Ht 175.3 cm; Wt 149.7 kg
--- NOTE | 2025-11-10 14:14 | ELECTROCARDIOGRAPH REPORT ---
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 Jeffery Mcknight Measurements Intervals [place] Rate: 129 P: -12 CA: 89 QRS: -29 QRSD: 155 T: 130 QT: 357 QTc: 524 Interpretive Statements Sinus tachycardia Multiform ventricular premature complexes Left bundle branch block Baseline wander in lead(s) II,III,aVR,aVL,aVF,V1,V2,V3,V4,V5,V6 Electronically Signed On 11-10-2025 18:12:[address] Jeffery Mcknight Please click the below link to view image of tracing.
[2025-11-10] MEDS ORDERED: NORepinephrine 8mg/ 250ml NS 250 ML IV SCH (14:15)
[2025-11-10] MEDS ORDERED: magnesium sulf-water 2g/50mL 50 ML IV ONE (14:15)
[2025-11-10] MEDS ORDERED: amiodarone 150mg/dext, iso-os 100 ML IV ONE (14:19)
[2025-11-10 14:22] VITALS: BP 75/36; PULSE 50; RESP 13; O2SAT 46
[2025-11-10] MEDS ORDERED: VASOPRESSIN 20 UNITS/NS 100mL 100 ML IV SCH (14:24)
--- NOTE | 2025-11-10 18:37 | Physician Documentation ---
History of Present Illness ~ Chief Complaint: Code Blue Stated Complaint: CARDIAC ARREST Time Seen by MD: 14:58 Primary Medical Doctor: ; Dignity Source: family Mode of Arrival: Stretcher HPI This is a 65-year-old male past medical history of hypertension, CHF, diabetes noncompliant with medication according to family coming in via stretcher from the parking lot monisha remy. Chest compressions continued as patient was being wheeled in by a tech on the gurney applying adequate compressions during transport. Unable to get HPI, ROS from patient due to clinical condition. Please see [facility] for remaining information. Medication Reconciliation Allergies: Coded Allergies: Penicillins (Verified Allergy, Severe, hives; RASH, 04/05/25) >5 years ago, hives, no treatment needed amoxicillin (Verified Allergy, Severe, hives;RASH, 04/05/25) canagliflozin (Verified Allergy, Severe, hives, 04/05/25) Scheduled Amiodarone HCl* (Amiodarone HCl*), 1 TAB PO DAILY, (Reported) Bupropion Hcl (Bupropion Xl), 1 TAB PO DAILY, (Reported) Clopidogrel Bisulfate (Plavix), 1 TAB PO DAILY, (Reported) Duloxetine HCl (Duloxetine HCl), 1 CAP PO QAM, (Reported) Empagliflozin (Jardiance), 1 TAB PO DAILY, (Reported) Ezetimibe (Zetia), 1 TAB PO DAILY, (Reported) Furosemide (Furosemide), 1 TAB PO DAILY, (Reported) Insulin Degludec (Insulin Degludec Pen (U-200)), 100 UNITS SQ DAILY, (Reported) Insulin Lispro-Aabc (Lyumjev Kwikpen U-100), 50 UNITS SQ TID, (Reported) Metformin Hcl* (Metformin ER*), 1,000 MG PO BID, (Reported) Metoprolol Tartrate (Metoprolol Tartrate), 1 TAB PO BID, (Reported) Pantoprazole Sodium (PROTONIX tablet), 1 TAB PO DAILY, (Reported) Rosuvastatin Calcium (Rosuvastatin Calcium), 1 TAB PO DAILY, (Reported) Sacubitril/Valsartan (Entresto 49 mg-51 mg Tablet), 1 TAB PO Q12H, (Reported) Semaglutide (Ozempic), 0.25 MG SQ Q7D, (Reported) Past Medical History Past Medical History: Coronary Artery Disease, Hypertension, Vascular Disease, GERD, Diabetes, Chronic Back Pain, Fibromyalgia Past Surgical History: coronary bypass surgery Patient History: FH ischemic heart disease FATHER (stroke, heart disease, HTN, CABG, diabetes), , Age: 70, Cause: Stroke GRANDFATHER OR GRANDMOTHER, , Cause: AMI (acute myocardial infarction) 2 Brothers (htn, heart attacks), , Age: 59 Alcohol Use: None Drug Use: none Lives In: Home Physical Exam Vital Signs: Heart Rate: 50, Respiratory Rate: 13, BP: 75/36, Pulse Oximetry: 46 Physical Exam General: Nonresponsive no pulses cyanotic appearing, morbidly obese Head: No trauma Eyes: Initial response to light ENT: Mucous membranes Nl. Lips Nl. No lesions Neck: Supple. No JVD. No visible mass Resp: Airway not intact Heart: No pulses Abdomen: Morbid fat pannus Musc/skeletal: plus four pitting edema bilaterally to knee Psych: Unable to assess Neuro: Unable to assess Procedures Intubation Intubation Time: 1340 Intubation Method: orotracheal Endotracheal Tube Size: 8.0 Medications: none ETT Confirmation: Ascultation, CO2 Detector, Direct Visualization, Condensation in ETT Breath Sounds After Intubation: equal Intubation Complications: no complications Post Intubation Xray: No Progress Results/Orders Results/Orders Orders - DAT YI MD Monitor (11/10/25 13:46) Saline Lock (11/10/25 13:46) Electrocardiogram (11/10/25 13:46) Ventilator Settings (11/10/25 ) Abg (Arterial Blood Gas) (11/10/25 ) Sputum Inducement (11/10/25 ) Completed Orders - DAT YI MD Electrocardiogram (11/10/25 13:46) Magnesium Sulf-Water 2g/50ml (Magnesium (11/10/25 14:15) Norepinephrine 8mg/ 250ml Ns (Norepineph (11/10/25 14:15) Amiodarone 150mg/Dext, Iso-Os (Nexterone (11/10/25 14:19) Vasopressin 20 Units/Ns 100ml (Vasopress (11/10/25 14:24) Vital Signs 11/10/25 14:22 Pulse 50 Resp 13 Pulse Ox 46 FiO2 100 Laboratory Tests Test 11/10/25 13:56 Glucometer 226 H EKG/XRAY/CT/US/VASC/MRI EKG : Intepreting Monitor?: Yes Additional Comment [facility] Test Date: 2025-11-10 Test Time: 14:12:43 Pat Name: JESSIE BURGOS Department: EMERGENCY ROOM Room: Gender: M 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 Jeffery Mcknight Measurements Intervals [place] Rate: 129 P: -12 SC: 89 QRS: -29 QRSD: 155 T: 130 QT: 357 QTc: 524 Interpretive Statements Sinus tachycardia Multiform ventricular premature complexes Left bundle branch block Baseline wander in lead(s) II,III,aVR,aVL,aVF,V1,V2,V3,V4,V5,V6 Medical Decision Making Additional information obtaine: family Findings Patient arrived to the ED with family in car and they noticed he lost pulses called for help where patient was found to be pulseless place on a stretcher and chest compressions continued. Came into the ED with a tech riding the [employer] delivering adequate chest compressions. No IV establishment due to patient's habitus difficult IV access. To Ios drilled by myself in each tibia with positive blood return and good flush. Ten rounds and total of ACLS performed. Patient was intubated by myself with a a 8.0 tube direct 4 MAC. Anterior airway Mallampati four. Such as needed has fluid was coming out of the lungs actively during intubation. Patient continued to desaturate on the ventilator. ROSC achieved several times however patient continued to feel into PEA arrest. Discussion had with family about the patient's wishes and the and daughter agree that he would not want any further measures done at this time. is POA. To total g of calcium chloride pushed to amps of bicarb pushed. Patient was sustaining a blood pressure 110/60 with a heart rate of 63. After family decision patient began to Thanh down with O2 levels in the mid 60s at this time with fluid coming up into the tube from the lungs. Most likely cause of was noncompliance as discussion with family states he has not taken Lasix in two weeks did not enjoy taking medications did not eat properly and had poor habits. At the time of was called at moment of silence was held with family and staff involved in case. Family was given time for questions as we help comfort them in this difficult time. Critical care time 41 minutes. Clinical impression CHF exacerbation leading to hypoxia leading to PEA arrest. Differential Dx:Considerations: Include Cardiopulmonary arrest, Include Electrolyte Disorder, Include Pulmonary embolus Departure Disposition: 20 Impression: Primary Impression: Cardiac arrest Referrals: NO PRIMARY CARE PROVIDER (PCP) Education Educated: Family Signature Scribe Signature: No scribe Attestation: Signed by Dr. Yi on 11/12/2025 at 8:29 a.m. DAT YI MD Nov 10, 2025 18:37
--- NOTE | 2025-11-11 06:29 | ELECTROCARDIOGRAPH REPORT ---
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 Reading MD: Dr. Jeffery Mcknight Measurements Intervals [place] Rate: 102 P: 0 IN: 0 QRS: -24 QRSD: 137 T: 103 QT: 379 QTc: 494 Interpretive Statements Atrial fibrillation Nonspecific intraventricular conduction delay Anterior infarct, old Repol abnrm, severe global ischemia (LM/MVD) Electronically Signed On 11-11-2025 7:17:[address] Jeffery Mcknight Please click the below link to view image of tracing.
== END 2025-11-10 17:53 ==
LOC: ER 13:40
DX: I46.9 Cardiac arrest, cause unspecified (principal); K21.9 Gastro-esophageal reflux disease without esophagitis; E11.9 Type 2 diabetes mellitus without complications; I25.2 Old myocardial infarction; I25.10 Atherosclerotic heart disease of native coronary artery without angina pectoris; G89.29 Other chronic pain; I11.0 Hypertensive heart disease with heart failure; I50.9 Heart failure, unspecified; M79.7 Fibromyalgia; I48.91 Unspecified atrial fibrillation; Z88.0 Allergy status to penicillin; Z95.1 Presence of aortocoronary bypass graft; Z88.1 Allergy status to other antibiotic agents; Z79.899 Other long term (current) drug therapy
CPT/HCPCS: 31500; 82948; 93005; 99285; A6258; C1758; 94002; 94760